=== PATIENT | male | born 1950 | race Caucasian/White ===

== ENCOUNTER 2019-03-20 06:46 | Inpatient (IN) | payer MEDICARE, OTHER ==
[2019-03-18 10:13] LABS: BASOPHILS # (AUTO) 0.1 (0.0-0.1); BASOPHILS % 0.6 % (0.0-1.0); EOSINOPHILS # (AUTO) 0.1 (0.0-0.4); EOSINOPHILS % 0.8 % (0.0-6.0); HEMATOCRIT 42.6 % (38.2-49.6); HEMOGLOBIN 15.1 g/dL (14.0-18.0); LYMPHOCYTES # (AUTO) 1.4 (1.0-3.2); LYMPHOCYTES % 16.1 % (18.0-39.1); MEAN CORPUSCULAR HEMOGLOBIN 31.3 pg (28-32); MEAN CORPUSCULAR HGB CONC 35.4 g/dL (31-35); MEAN CORPUSCULAR VOLUME 88.2 fL (81-99); MONOCYTES # (AUTO) 0.8 (0.2-0.8); MONOCYTES % 8.7 % (4.4-11.3); NEUTROPHILS # (AUTO) 6.3 (2.1-6.9); NEUTROPHILS % 73.2 % (38.7-80.0); PLATELET COUNT 236 x10e3/uL (140-360); RED BLOOD COUNT 4.83 x10e6/uL (4.3-5.7)
[2019-03-18 10:26] LABS: BLOOD UREA NITROGEN 16 mg/dL (7-26); BUN/CREATININE RATIO 21 (6-25); CALCIUM 9.9 mg/dL (8.4-10.2); CARBON DIOXIDE 24 mmol/L (22-29); CHLORIDE 103 mmol/L (98-107); CREATININE, SERUM 0.78 mg/dL (0.72-1.25); EST GLOMERULAR FILTRATION RATE > 60 ML/MIN (60-); GLUCOSE 95 mg/dL (74-118); SODIUM 139 mmol/L (136-145)
[2019-03-18 10:31] LABS: INR 0.98; PROTHROMBIN TIME 13.5 seconds (11.9-14.5)
--- NOTE | 2019-03-18 10:44 | Diagnostic Imaging Report ---
EXAMINATION: CHEST 2 VIEWS INDICATION: Pre-operative COMPARISON: None FINDINGS: LINES/TUBES:None LUNGS:The lungs are well-inflated. No focal consolidation or pulmonary edema. PLEURA:No pleural effusion or pneumothorax. MEDIASTINUM:The cardiomediastinal silhouette appears normal in size and shape. Atherosclerotic calcifications of the thoracic aorta. BONES/SOFT TISSUES:No acute osseous injury. Degenerative changes of the visualized spine. ABDOMEN:No free air under the diaphragm. IMPRESSION: No focal pneumonia or pulmonary edema. Signed by: Gemini Valles MD on 03/18/2019 10:41 AM
[2019-03-20] VITALS (7 sets, daily range): BP systolic 110–123; BP diastolic 58–67
[~2019-03-20] VITALS: Ht 168.9 cm; Wt 102.1 kg
[~2019-03-20 06:46] MED LIST: LIPITOR20 MG PO; MICARDIS HCT 81 EAC1 PO; PROBIOTIC & AC1 EACH PO; SPIRONOLACTONE25 MG PO; VITAMIN D400 UNIT PO; XARELTO20 MG PO
--- OUTSIDE RECORDS SUMMARY | 2019-03-20 06:51 | XMS REPORT | Continuity of Care Document ---
Author Author [employer] Organization [employer] Address Unknown Phone Unavailable Care Team Providers Care School Transportation Director Name Role Phone [employer] Information mymission2 Unavailable Unavailable Problems Problem Status Onset Date Classification Date Reported Comments Source M25.569 - PAIN IN UNSPECIFIED KNEE Active 01/03/2019 [employer] Medications No Data Provided for This Section Allergies, Adverse Reactions, Alerts No Known Medication Allergies Immunizations No Data Provided for This Section Results No Data Provided for This Section Pathology Reports No Data Provided for This Section Diagnostic Reports Report Value Date Source Knee 4+ views bilat DX Clinical Indication: - M25.569 Pain in unspecified knee; Comparison: None FINDINGS: 4 views of the bilateral knees are obtained. Right knee: There is moderate osteoarthrosis in the medial and patellofemoral compartments with joint space narrowing and marginal osteophyte formation. Mild osteoarthrosis is present in the lateral compartment with joint space narrowing. No evidence of acute osseous abnormality. No soft tissue abnormality is seen. No significant knee effusion. Left knee: A left total knee arthroplasty is present with changes of patellar resurfacing. Prosthesis appears in satisfactory alignment, without evidence of perihardware lucency or hardware complication. No evidence of acute osseous abnormality. No soft tissue abnormality is seen. If there is further concern, recommend follow-up radiographs or MRI for complete assessment. IMPRESSION: 1. No acute osseous abnormality. 2. Moderate osteoarthrosis in the medial and patellofemoral compartments of the right knee and mild osteoarthrosis in the lateral compartment of the right knee. 3. Left total knee arthroplasty. SL: [id number] 01/03/2019 [employer] Spine lumbar 2 or 3 views DX Clinical Indication: - M54.5 Low back pain; Comparison: None FINDINGS: AP, lateral, and coned lateral views of the lumbar spine show five non rib bearing lumbar vertebral segments. Lumbar spine alignment is maintained. No evidence of acute osseous abnormality. Degenerative disc disease is present in the lumbar spine with disc space narrowing at L1-L2, L2-L3, and L5-S1. Multilevel small anterior osteophytes are present in the lumbar spine. The paraspinal soft tissues are unremarkable. If there is further concern or neurological abnormalities on clinical exam, MRI or CT of the lumbar spine may be performed for complete assessment. IMPRESSION: Multilevel degenerative disc disease in the lumbar spine. SL: [id number] 01/03/2019 KENNETH Brady Consultation Notes No Data Provided for This Section Discharge Summaries No Data Provided for This Section History and Physicals No Data Provided for This Section Vital Signs No Data Provided for This Section Encounters Location Location Details Encounter Type Encounter Number Reason For Visit Attending Provider ADM Date DC Date Status Source [facility] Out[facility] [id number] Allan Tyler 01/03/2019 01/04/2019 KENNETH Brady Procedures No Data Provided for This Section Assessment and Plan No Data Provided for This Section Plan of Care No Data Provided for This Section Social History Social History Date Source No data available for this section 01/04/2019 KENNETH Brady Family History No Data Provided for This Section Advance Directives No Data Provided for This Section Functional Status No Data Provided for This Section
--- OUTSIDE RECORDS SUMMARY | 2019-03-20 06:51 | XMS REPORT ---
Author [facility] Address Unknown Phone Unavailable Care Team Providers Care Bioinformatics Research Technician Name Role Phone IRIS HENSON Unavailable Unavailable Payers Payer Name Policy Type Policy Number Effective Date Expiration Date Problems This patient has no known problems. Allergies, Adverse Reactions, Alerts This patient has no known allergies or adverse reactions. Medications This patient has no known medications. Results Test Description Test Time Test Comments Text Results Atomic Results Result Comments CHEST 2 VIEWS 2019-03-18 10:40:00 [place] [address] Patient Name: SATHYA MAGANA MR #: [id number] : 1950 Age/Sex: 68/M Req #: [id number] Adm Physician: Ordered by: IRIS HENSON MD Report #: [id number] Location: OR Room/Bed: Procedure: [id number] DX/CHEST 2 VIEWS Exam Date: 03/18/19 Exam Time: 1000 REPORT STATUS: Signed EXAMINATION: CHEST 2 VIEWS INDICATION: Pre-operative COMPARISON: None FINDINGS: LINES/TUBES:None LUNGS:The lungs are well-inflated. No focal consolidation or pulmonary edema. PLEURA:No pleural effusion or pneumothorax. MEDIASTINUM:The cardiomediastinal silhouette appears normal in size and shape. Atherosclerotic calcifications of the thoracic aorta. BONES/SOFT TISSUES:No acute osseous injury. Degenerative changes of the visualized spine. ABDOMEN:No free air under the diaphragm. IMPRESSION: No focal pneumonia or pulmonary edema. Signed by: Joe Valles MD on 03/18/2019 10:41 AM Dictated By: JOE VALLES MD 1041 Transcribed By: FAYE on 03/18/19 1041 COPY TO: IRIS HENSON MD
--- OUTSIDE RECORDS SUMMARY | 2019-03-20 06:51 | XMS REPORT | Summary of Care ---
Author Author [facility] Outpatient Imaging [facility] Outpatient Imaging [place] Address Unknown Phone Unavailable Encounter HQ Encntr_alias(FIN) [id number] Date(s): 01/03/19 - 01/03/19 [facility] Outpatient Imaging [place] [address] [address] [phone]- [phone] Discharge Disposition: Home or Self Care Attending Physician: Allan Tyelr MD Referring Physician: Allan Tyler MD Vital Signs No data available for this section Problem List No data available for this section Allergies, Adverse Reactions, Alerts No data available for this section Medications No data available for this section Results No data available for this section Immunizations No data available for this section Procedures No data available for this section Social History No data available for this section Assessment and Plan No data available for this section
[2019-03-20] MEDS ORDERED: PIPER-TAZ 3.375 GM 50 ML ONE (07:37)
[2019-03-20] MEDS ORDERED: GENTAMICIN 80MG/NS 100 ML 200 ML IV ONE (07:37)
[2019-03-20] MEDS ORDERED: TERAZOSIN HCL5 MG PO (07:54)
[2019-03-20] MEDS ORDERED: B&O 60MG R/S 60 MG SUPP PR ONE (09:13)
[2019-03-20] MEDS ORDERED: IOPAMIDOL 610MG/1ML 300 MG/ML VIAL IV ONE (09:13)
[2019-03-20] MEDS: D5.45%NS/KCL 20MEQ 1,000 ML IV SCH ×2 (11:34→21:16)
[2019-03-20] MEDS ORDERED: ONDANSETRON HCL INJ 2MG/ML 2ML 2 MG/ML VIAL IV PRN (11:45)
[2019-03-20] MEDS ORDERED: DIPHENHYDRAMINE HCL 25 MG CAP PO PRN (11:45)
[2019-03-20] MEDS ORDERED: B&O 60MG R/S 60 MG SUPP PR PRN (11:45)
--- OUTSIDE RECORDS SUMMARY | 2019-03-20 11:58 | XMS REPORT | Continuity of Care Document ---
Author Author [employer] Organization [employer] Address Unknown Phone Unavailable Care Team Providers Care Library Cataloging Technician Name Role Phone [employer] Information [employer] Unavailable Unavailable Problems Problem Status Onset Date Classification Date Reported Comments Source M25.569 - PAIN IN UNSPECIFIED KNEE Active 01/03/2019 [employer] Medications No Data Provided for This Section [...] knee. 3. Left total knee arthroplasty. SL: [id number] 01/03/2019 [employer] Spine lumbar 2 or 3 views DX [...] disc disease in the lumbar spine. SL: [id number] 01/03/2019 KENNETH Brady Consultation Notes No Data Provided for This Section Discharge Summaries No Data Provided for This Section History and Physicals No Data Provided for This Section Vital Signs No Data Provided for This Section Encounters Location Location Details Encounter Type Encounter Number Reason For Visit Attending Provider ADM Date DC Date Status Source [facility] Outpatient Imaging [facility] [id number] Allan Tyler 01/03/2019 01/04/2019 KENNETH Brady Procedures [...]
--- NOTE | 2019-03-20 12:50 | NUR ---
Received patient via stretcher from PACU. AAOX4 to time,person,place, situation. Respirations even and unlabored. 24 F catheter on continuous bladder irrigation. Bloody tinged urine noted. Oriented patient to room. Instructed to use call light for assistance. Voiced understanding. Will continue to monitor.
[2019-03-20] MEDS: PHENAZOPYRIDINE HCL 100 MG TAB PO SCH ×2 (13:11→17:05)
[2019-03-20] MEDS: ACETAMINOPHEN/CODEINE 300MG - 30MG TAB PO PRN ×2 (13:12→17:39)
[2019-03-20] MEDS ORDERED: FENTANYL CITRATE/PF 100MCG/2 ML INJ ONE (14:04)
[2019-03-20] MEDS ORDERED: MORPHINE SULFATE INJ 10 MG/ML ONE (14:04)
[2019-03-20] MEDS ORDERED: MIDAZOLAM HCL 2 MG/2 ML VIAL ONE (14:04)
[2019-03-20 15:44] LABS: BASOPHILS % 0.2 % (0.0-1.0); HEMATOCRIT 44.4 % (38.2-49.6); HEMOGLOBIN 15.7 g/dL (14.0-18.0); LYMPHOCYTES # (AUTO) 0.5 (1.0-3.2); LYMPHOCYTES % 4.1 % (18.0-39.1); MEAN CORPUSCULAR HEMOGLOBIN 31.4 pg (28-32); MEAN CORPUSCULAR HGB CONC 35.4 g/dL (31-35); MEAN CORPUSCULAR VOLUME 88.8 fL (81-99); MONOCYTES # (AUTO) 0.3 (0.2-0.8); MONOCYTES % 2.4 % (4.4-11.3); NEUTROPHILS # (AUTO) 12.4 (2.1-6.9); NEUTROPHILS % 92.8 % (38.7-80.0); PLATELET COUNT 187 x10e3/uL (140-360)
[2019-03-20 15:58] LABS: ANION GAP 15.8 mmol/L (8-16); BLOOD UREA NITROGEN 12 mg/dL (7-26); BUN/CREATININE RATIO 16 (6-25); CALCIUM 9.4 mg/dL (8.4-10.2); CARBON DIOXIDE 24 mmol/L (22-29); CHLORIDE 102 mmol/L (98-107); CREATININE, SERUM 0.77 mg/dL (0.72-1.25); EST GLOMERULAR FILTRATION RATE > 60 ML/MIN (60-); GLUCOSE 129 mg/dL (74-118); POTASSIUM 3.8 mmol/L (3.5-5.1); SODIUM 138 mmol/L (136-145)
--- NOTE | 2019-03-20 16:00 | NUR ---
xarelto, spironolactone and mycardis held per
[2019-03-20] MEDS: PIPER-TAZ 3.375 GM 50 ML IV SCH (17:05)
[2019-03-20] MEDS: DOCUSATE SODIUM 100 MG CAP PO SCH (17:05)
[2019-03-20] MEDS ORDERED: ACETAMINOPHEN 1000 MG/100 ML IV ONE (17:30)
[2019-03-20] MEDS ORDERED: FUROSEMIDE INJ 10 MG/ML 4 ML VIAL ONE (17:30)
[2019-03-20] MEDS ORDERED: LIDOCAINE HCL 2% LOCAL INJ 5 ML SDV VIAL INJ ONE (17:30)
[2019-03-20] MEDS ORDERED: ONDANSETRON HCL INJ 2MG/ML 2ML 2 MG/ML VIAL ONE (17:30)
[2019-03-20] MEDS ORDERED: DEXAMETHASONE SOD PHOS INJ 4 MG/ML VIAL ONE (17:30)
[2019-03-20] MEDS ORDERED: PROPOFOL IV EMULSION 10 MG/ML 20 ML VIAL ONE (17:30)
[2019-03-20] MEDS ORDERED: SEVOFLURANE INHAL SOLN 250 ML PEN BTL ONE (17:30)
[2019-03-20] MEDS ORDERED: GLYCOPYRROLATE INJ 1MG/ 5 ML SYR ONE (17:30)
--- NOTE | 2019-03-20 19:21 | NUR ---
Report given to oncoming nurse of patient's status. Resting in bed, side rails upx2, call light within reach, family at bedside. No s/s of acute distress noted.
--- NOTE | 2019-03-20 20:02 | NUR ---
RECEIVED REPORT. PATIENT AAOX3, DENIES PAIN. DENIES NEEDS. CALL LIGHT WITHIN REACH.
[2019-03-20] MEDS ORDERED: ATORVASTATIN 20 MG TAB PO SCH (21:00)
[2019-03-20] MEDS: TERAZOSIN HCL 5 MG CAP PO SCH (21:07)
[2019-03-20] MEDS: ATORVASTATIN 40 MG TAB PO SCH (21:16)
[2019-03-21] VITALS (7 sets, daily range): BP systolic 107–125; BP diastolic 59–73
[2019-03-21] MEDS: PIPER-TAZ 3.375 GM 50 ML IV SCH ×4 (00:27→23:59)
[2019-03-21 05:43] LABS: BASOPHILS % 0.2 % (0.0-1.0); EOSINOPHILS % 0.2 % (0.0-6.0); HEMATOCRIT 38.7 % (38.2-49.6); HEMOGLOBIN 13.8 g/dL (14.0-18.0); LYMPHOCYTES # (AUTO) 1.3 (1.0-3.2); LYMPHOCYTES % 9.8 % (18.0-39.1); MEAN CORPUSCULAR HEMOGLOBIN 31.9 pg (28-32); MEAN CORPUSCULAR HGB CONC 35.7 g/dL (31-35); MEAN CORPUSCULAR VOLUME 89.6 fL (81-99); MONOCYTES # (AUTO) 1.3 (0.2-0.8); MONOCYTES % 10.3 % (4.4-11.3); NEUTROPHILS # (AUTO) 10.3 (2.1-6.9); NEUTROPHILS % 78.9 % (38.7-80.0); PLATELET COUNT 183 x10e3/uL (140-360); RED BLOOD COUNT 4.32 x10e6/uL (4.3-5.7)
[2019-03-21] MEDS: D5.45%NS/KCL 20MEQ 1,000 ML IV SCH (05:54)
[2019-03-21 06:00] LABS: ANION GAP 12.4 mmol/L (8-16); BLOOD UREA NITROGEN 11 mg/dL (7-26); BUN/CREATININE RATIO 13 (6-25); CALCIUM 8.7 mg/dL (8.4-10.2); CARBON DIOXIDE 24 mmol/L (22-29); CHLORIDE 103 mmol/L (98-107); CREATININE, SERUM 0.87 mg/dL (0.72-1.25); EST GLOMERULAR FILTRATION RATE > 60 ML/MIN (60-); GLUCOSE 140 mg/dL (74-118); POTASSIUM 4.4 mmol/L (3.5-5.1); SODIUM 135 mmol/L (136-145)
--- NOTE | 2019-03-21 07:17 | NUR ---
BEDSIDE REPORT GIVEN TO ONCOMING NURSE. PATIENT AAOX3, STABLE CONDITION, RESTING IN BED. BED LOCKED AND IN LOWEST POSITION, CALL LIGHT WITHIN REACH.
[2019-03-21] MEDS: ACETAMINOPHEN/CODEINE 300MG - 30MG TAB PO PRN (07:54)
[2019-03-21] MEDS: LACTOBACILLUS ACIDOPHILUS CAPSULE PO SCH (07:55)
[2019-03-21] MEDS: CHOLECALCIFEROL 400 UNIT TAB PO SCH (07:55)
[2019-03-21] MEDS: DOCUSATE SODIUM 100 MG CAP PO SCH ×2 (07:55→16:39)
[2019-03-21] MEDS: PHENAZOPYRIDINE HCL 100 MG TAB PO SCH ×3 (07:55→16:39)
[2019-03-21] MEDS ORDERED: CHOLECALCIFEROL PO SCH (09:00)
[2019-03-21] MEDS ORDERED: TERAZOSIN HCL 5 MG CAP PO SCH (09:00)
[2019-03-21] MEDS ORDERED: SODIUM CHLORIDE 0.9% 250ML 250 ML ONE (16:06)
--- NOTE | 2019-03-21 19:00 | NUR ---
RECEIVED PATIENT IN BEDSIDE REPORT. PATIENT AMBULATING BACK TO BED FROM BATHROOM. STEADY GAIT NOTED. NO PAIN REPORTED. CONTINUOUS BLADDER IRRIGATION RUNNING, URINE DRAINING AND ORANGE. LYDIA HOSE AND SCDS ON. NO S&S OF DISTRESS NOTED. BED LOCKED IN LOWEST POSITION, SIDE RAILS UPX2, CALL LIGHT IN REACH.
--- NOTE | 2019-03-21 19:00 | NUR ---
Report given to oncoming nurse of patient's status. No s/s of acute distress noted.
[2019-03-21] MEDS: ATORVASTATIN 40 MG TAB PO SCH (20:51)
[2019-03-21] MEDS: TERAZOSIN HCL 5 MG CAP PO SCH (20:51)
[2019-03-22] VITALS: BP 124/62
--- NOTE | 2019-03-22 03:00 | NUR ---
CBI BAGS CHANGED AT THIS TIME. URINE DRAINING CLEAR, YELLOW AT THIS TIME. NO PAIN OR S&S OF DISTRESS NOTED. WILL CONTINUE TO MONITOR.
[2019-03-22 04:00] VITALS: BP 143/80
[2019-03-22 05:55] LABS: BASOPHILS # (AUTO) 0.1 (0.0-0.1); BASOPHILS % 0.5 % (0.0-1.0); EOSINOPHILS # (AUTO) 0.2 (0.0-0.4); EOSINOPHILS % 2.1 % (0.0-6.0); HEMATOCRIT 38.3 % (38.2-49.6); HEMOGLOBIN 13.1 g/dL (14.0-18.0); LYMPHOCYTES # (AUTO) 2.3 (1.0-3.2); LYMPHOCYTES % 19.5 % (18.0-39.1); MEAN CORPUSCULAR HEMOGLOBIN 31.2 pg (28-32); MEAN CORPUSCULAR HGB CONC 34.2 g/dL (31-35); MEAN CORPUSCULAR VOLUME 91.2 fL (81-99); MONOCYTES # (AUTO) 1.1 (0.2-0.8); MONOCYTES % 9.1 % (4.4-11.3); NEUTROPHILS % 68.3 % (38.7-80.0); PLATELET COUNT 174 x10e3/uL (140-360); RED CELL DISTRIBUTION WIDTH 13.2 % (11.7-14.4)
[2019-03-22 06:17] LABS: ANION GAP 11.7 mmol/L (8-16); BLOOD UREA NITROGEN 14 mg/dL (7-26); BUN/CREATININE RATIO 18 (6-25); CALCIUM 8.8 mg/dL (8.4-10.2); CARBON DIOXIDE 24 mmol/L (22-29); CHLORIDE 108 mmol/L (98-107); CREATININE, SERUM 0.76 mg/dL (0.72-1.25); EST GLOMERULAR FILTRATION RATE > 60 ML/MIN (60-); GLUCOSE 93 mg/dL (74-118); POTASSIUM 3.7 mmol/L (3.5-5.1); SODIUM 140 mmol/L (136-145)
[2019-03-22 08:06] VITALS: BP 129/70
[2019-03-22 08:29] VITALS: BP 129/70
[2019-03-22] MEDS: DOCUSATE SODIUM 100 MG CAP PO SCH (08:29)
[2019-03-22] MEDS: PIPER-TAZ 3.375 GM 50 ML IV SCH (08:29)
[2019-03-22] MEDS: LACTOBACILLUS ACIDOPHILUS CAPSULE PO SCH (08:29)
[2019-03-22] MEDS: CHOLECALCIFEROL 400 UNIT TAB PO SCH (08:29)
[2019-03-22] MEDS: PHENAZOPYRIDINE HCL 100 MG TAB PO SCH (08:29)
[2019-03-22] MEDS ORDERED: ONDANSETRON HCL 4 MG ORAL DISINTEGRATING TAB PO PRN (08:45)
--- NOTE | 2019-03-22 10:20 | NUR ---
EDUCATED ABOUT IMM, SIGNED, FILED IN CHART, WITH COPY LEFT WITH FAMILY AT BEDSIDE.
--- NOTE | 2019-03-22 11:04 | NUR ---
CBI AND ROBINA MCLEAN PT DOING SERIAL URINES AT THIS TIME
[2019-03-22] MEDS: ACETAMINOPHEN/CODEINE 300MG - 30MG TAB PO PRN (11:10)
[2019-03-22 12:05] VITALS: BP 139/77
--- NOTE | 2019-03-22 13:24 | NUR ---
PT HAD 5 CLEAR SERIAL URINES MD HENSON AWARE AND HAS CLEARED PT DC
[2019-03-22] MEDS ORDERED: CIPRO500 MG PO (13:28)
[2019-03-22] MEDS ORDERED: ZOFRAN4 MG PO (13:28)
[2019-03-22] MEDS ORDERED: TYLENOL # 31 EA PO (13:29)
--- NOTE | 2019-03-22 13:58 | NUR ---
DISCHARGE INSTRUCTIONS AND PRESCRIPTIONS GIVEN. PT VERBALIZED UNDERSTANDING IV DC PRESSURE DRESSING APPLIED AND TAPED PT IS READY FOR DC AT THIS TIME
--- NOTE | 2019-03-22 14:04 | NUR ---
PT OFF UNIT TO HOME
--- NOTE | 2019-05-13 05:50 | Operative Report ---
DATE OF PROCEDURE: 03/20/2019 SURGEON: Donn Verdugo MD PREOPERATIVE DIAGNOSES: 1. Obstructive benign prostatic hypertrophy. 2. Elevated PSA. 3. Urinary tract infection. 4. Hematuria. 5. History of urolithiasis. POSTOPERATIVE DIAGNOSES: 1. Obstructive benign prostatic hypertrophy. 2. Elevated PSA. 3. Urinary tract infection. 4. Hematuria. 5. History of urolithiasis. 6. Distal urethral stricture disease. OPERATIONS PERFORMED: 1. Transrectal needle biopsy of the prostate (separate procedure performed for the elevated PSA). 2. Ultrasonographic guidance for needle biopsies interpretation. No radiologist present. 3. Interpretation of transrectal sonography. No radiologist present. 4. Cystourethroscopy with calibration and dilation of urethral stricture (separate procedure performed for the diagnosis of stricture). 5. Cystourethroscopy with bilateral ureteral catheterization and retrograde ureteropyelography (separate procedure performed for the urinary tract infections, hematuria, and stone history). 6. Cystourethroscopy with transurethral resection of the prostate utilizing the plasma button electrode. ANESTHESIA: General. COMPLICATIONS: None. CLINICAL SUMMARY: Joo Bai is a 68-year-old man with elevated PSA. He has a family history of prostate cancer. He has obstructive BPH and desires management. He is aware of the risks of bleeding, infection, injury to adjacent structures, need for additional procedures, and elected to proceed. OPERATIVE PROCEDURE IN DETAIL: Informed consent was verified. Joo Bai was properly identified, taken to the operating room, placed on the cystoscopy table in supine position. Anesthesia was uneventfully begun. The patient was then carefully and gently repositioned in dorsal lithotomy position with all pressure points well padded. Transrectal ultrasonography was performed. Interpretation of ultrasonography. Real-time ultrasonography was performed. The patient's prostate size was approximately 72 mL. There was a nodule at the anterior portion of the prostate to the . No other suspicious lesions were identified. There were no other tumors. The prostate capsule was otherwise smooth and the seminal vesicles were unremarkable. Transrectal ultrasonography was utilized to perform needle biopsies of prostate. A total of six biopsies were taken and biopsies were taken at 6 different locations. Multiple biopsies were taken at each location. We labeled the biopsies the right versus left and base versus mid versus apex. After obtaining the biopsies, the patient's genitalia were prepared and draped in usual sterile fashion. The cystoscope sheath with a visual obturator in place could not be easily placed, as the fossa navicularis, although it was able to be placed into the urethral meatus. We calibrated this approximately 18-Tuvaluan in size and progressively dilated to 30-Tuvaluan in size using female sounds. We were then easily able to place the cystoscope sheath with the visual obturator was placed in the patient's urethra. The urethra otherwise was remarkable for wide caliber, not clinically significant bulbar urethral stricture. The prostate bed is good with trilobar prostatic hypertrophy with visual obstruction. Panendoscopy of the bladder revealed heavy trabeculations. There were grade III nature, but no suspicious mucosal lesions were identified. An 8-Tuvaluan catheter was used to cannulate each ureter and retrograde ureteral pyelograms were performed. Interpretation of retrograde ureteropyelography contrast was instilled in retrograde fashion bilaterally. There were no tumors, no stones, no diverticula. Bilateral J hooking was noted. There were no obvious mucosal lesions. The cystoscope was withdrawn. The resectoscope was atraumatically placed with obturator in place. Vaporization of the prostate was then carried out from the bladder neck to maneuver past the verumontanum. Resection carried down the surgical capsule. We then utilized electrocautery to achieve and confirm hemostasis. During this resection, there is a median lobe. Care was taken to avoid injuring the ureteral orifices. A wide open prostatic channel was achieved with excellent hemostasis. The cystoscope was withdrawn. Johnson catheter was placed. It was irrigated to and fro to ensure it works properly. A belladonna and opium suppository were placed revealing a 50 g prostate that was smooth, nonfluctuant without any nodules. The patient was then uneventfully reversed from anesthesia and taken to recovery room in stable condition. There were no complications to the procedure. The patient tolerated the procedure well. Estimated blood loss was minimal. We will proceed with routine postoperative care and of course ongoing urological followup. Donn Verdugo MD [place]/MODL /[id number]
== END 2019-03-22 14:02 | disposition home or self-care (01) | DRG 713 ==
LOC: OR 06:46 → PACU V 11:37 → MED/SURG 12:51
PROVIDERS: ADMIT Internal Medicine; ATTEND Urology
PROC: 0T7D8ZZ Dilation of Urethra, Via Natural or Artificial Opening Endoscopic (ICD-10-PCS; 2019-03-20)
PROC: BT141ZZ Fluoroscopy of Kidneys, Ureters and Bladder using Low Osmolar Contrast (ICD-10-PCS; 2019-03-20)
PROC: 0VB08ZZ Excision of Prostate, Via Natural or Artificial Opening Endoscopic (ICD-10-PCS; principal; 2019-03-20 09:00)
PROC: 0VB08ZX Excision of Prostate, Via Natural or Artificial Opening Endoscopic, Diagnostic (ICD-10-PCS; 2019-03-20 09:00)
PROC: 0T788ZZ Dilation of Bilateral Ureters, Via Natural or Artificial Opening Endoscopic (ICD-10-PCS; 2019-03-20 09:00)
DX: N40.1 Benign prostatic hyperplasia with lower urinary tract symptoms (principal); N39.0 Urinary tract infection, site not specified; N13.8 Other obstructive and reflux uropathy; R33.8 Other retention of urine; N35.819 Other urethral stricture, male, unspecified site; Z87.442 Personal history of urinary calculi
CPT/HCPCS: 36415; 71046; 74420; 76872; 76998; 80048; 83735; 85025; 85610; 85730; 88305; C1758; J1100; J1580; J1940; J2001; J2250; J2270; J2405; J2543; J3010; J7050

== ENCOUNTER 2019-03-23 22:33 | Emergency (ER) | payer MEDICARE, OTHER ==
[~2019-03-23] VITALS: Ht 168.9 cm; Wt 102.1 kg
[~2019-03-23 22:33] MED LIST changes: +CIPRO500 MG PO; +TERAZOSIN HCL5 MG PO; +TYLENOL # 31 EA PO; +ZOFRAN4 MG PO
--- OUTSIDE RECORDS SUMMARY | 2019-03-23 22:36 | XMS REPORT | Continuity of Care Document ---
Author Author [employer] Organization [employer] Address Unknown Phone Unavailable Care Team Providers Care Golf Cart Maker Name Role Phone [employer] Information [email or web address] Unavailable Unavailable Problems Problem Status Onset Date Classification Date Reported Comments Source M25.569 - PAIN IN UNSPECIFIED KNEE Active 01/03/2019 [employer] Medications No Data Provided for This Section [...] knee. 3. Left total knee arthroplasty. SL: [id number] 01/03/2019 [employer] Spine lumbar 2 or 3 views DX [...] disc disease in the lumbar spine. SL: [id number] 01/03/2019 KENNETH Brady Consultation Notes No Data Provided for This Section Discharge Summaries No Data Provided for This Section History and Physicals No Data Provided for This Section Vital Signs No Data Provided for This Section Encounters Location Location Details Encounter Type Encounter Number Reason For Visit Attending Provider ADM Date DC Date Status Source [facility] Outpatient Imaging [facility] [id number] Allan Tyler 01/03/2019 01/04/2019 KENNETH Brady Procedures [...]
== END 2019-03-23 22:48 | disposition left against medical advice (07) ==
LOC: ER 22:33
DX: M79.89 Other specified soft tissue disorders (principal)

== ENCOUNTER 2019-04-01 21:35 | Emergency (ER) | payer MEDICARE, OTHER ==
[~2019-04-01] VITALS: Ht 168.9 cm; Wt 102.1 kg
--- OUTSIDE RECORDS SUMMARY | 2019-04-01 21:38 | XMS REPORT | Continuity of Care Document ---
Author Author [employer] Organization [employer] Address Unknown Phone Unavailable Care Team Providers Care Window Shade Cutter And Mounter Name Role Phone [employer] Information [email or web address] Unavailable Unavailable Problems Problem Status Onset Date Classification Date Reported Comments Source M25.569 - PAIN IN UNSPECIFIED KNEE Active 01/03/2019 [employer] Medications No Data Provided for This Section [...] knee. 3. Left total knee arthroplasty. SL: [id number] 01/03/2019 [employer] Spine lumbar 2 or 3 views DX [...] disc disease in the lumbar spine. SL: [id number] 01/03/2019 KENNETH Brady Consultation Notes No Data Provided for This Section Discharge Summaries No Data Provided for This Section History and Physicals No Data Provided for This Section Vital Signs No Data Provided for This Section Encounters Location Location Details Encounter Type Encounter Number Reason For Visit Attending Provider ADM Date DC Date Status Source [facility] Outpatient Imaging [facility] [id number] Allan Tyler 01/03/2019 01/04/2019 KENNETH Brady Procedures [...]
[2019-04-01 23:06] LABS: BILIRUBIN,URINE NEGATIVE (NEGATIVE); CLARITY,URINE CLOUDY (CLEAR); COLOR,URINE YELLOW (YELLOW); KETONES,URINE NEGATIVE (NEGATIVE); LEUKOCYTE ESTERASE ,URINE SMALL (NEGATIVE); NITRITE,URINE NEGATIVE (NEGATIVE); PROTEIN,URINE DIPSTICK 2+ (NEGATIVE); URINE UROBILINOGEN 0.2 mg/dL (0.2 - 1)
[2019-04-01 23:25] LABS: BACTERIA,URINE MODERATE /HPF; EPITHELIAL CELLS,URINE FEW /LPF; RBC,URINE >50 /HPF (0-5); WBC,URINE (MAN) >50 /HPF (0-5)
[2019-04-02 01:25] VITALS: BP 109/78
== END 2019-04-02 01:29 | disposition home or self-care (01) ==
LOC: ER 21:35
DX: M79.661 Pain in right lower leg (principal); N30.91 Cystitis, unspecified with hematuria; Z86.711 Personal history of pulmonary embolism
CPT/HCPCS: 81001; 87086; 93306; 93971; 99283

== ENCOUNTER 2019-04-16 15:09 | Emergency (ER) | payer MEDICARE, OTHER ==
[~2019-04-16] VITALS: Ht 168.9 cm; Wt 102.1 kg
--- OUTSIDE RECORDS SUMMARY | 2019-04-16 15:12 | XMS REPORT | Continuity of Care Document ---
Author Author [employer] Organization [employer] Address Unknown Phone Unavailable Care Team Providers Care Senior Java Web Application Developer Name Role Phone [employer] Information [facility] [address] Unavailable Unavailable Problems Problem Status Onset Date Classification Date Reported Comments Source M25.569 - PAIN IN UNSPECIFIED KNEE Active 01/03/2019 [employer] Medications No Data Provided for This Section [...] knee. 3. Left total knee arthroplasty. SL: [id number] 01/03/2019 [employer] Spine lumbar 2 or 3 views DX [...] disc disease in the lumbar spine. SL: [id number] 01/03/2019 KENNETH Brady Consultation Notes No Data Provided for This Section Discharge Summaries No Data Provided for This Section History and Physicals No Data Provided for This Section Vital Signs No Data Provided for This Section Encounters Location Location Details Encounter Type Encounter Number Reason For Visit Attending Provider ADM Date DC Date Status Source [facility] Outpatient Imaging [facility] [id number] Allan Tyler 01/03/2019 01/04/2019 KENNETH Brady Procedures [...]
[2019-04-16 16:07] LABS: BILIRUBIN,URINE NEGATIVE (NEGATIVE); CLARITY,URINE SL CLOUDY (CLEAR); KETONES,URINE NEGATIVE (NEGATIVE); LEUKOCYTE ESTERASE ,URINE SMALL (NEGATIVE); NITRITE,URINE NEGATIVE (NEGATIVE); PROTEIN,URINE DIPSTICK 2+ (NEGATIVE); URINE UROBILINOGEN 0.2 mg/dL (0.2 - 1)
[2019-04-16 16:08] LABS: COLOR,URINE AMBER (YELLOW)
[2019-04-16 16:20] LABS: RBC,URINE 21-50 /HPF (0-5)
[2019-04-16 17:15] LABS: BASOPHILS # (AUTO) 0.1 (0.0-0.1); BASOPHILS % 0.6 % (0.0-1.0); EOSINOPHILS # (AUTO) 0.3 (0.0-0.4); EOSINOPHILS % 2.8 % (0.0-6.0); HEMATOCRIT 41.5 % (38.2-49.6); HEMOGLOBIN 14.5 g/dL (14.0-18.0); LYMPHOCYTES % 20.9 % (18.0-39.1); MEAN CORPUSCULAR HEMOGLOBIN 30.9 pg (28-32); MEAN CORPUSCULAR HGB CONC 34.9 g/dL (31-35); MEAN CORPUSCULAR VOLUME 88.3 fL (81-99); MONOCYTES # (AUTO) 0.9 (0.2-0.8); MONOCYTES % 9.9 % (4.4-11.3); NEUTROPHILS # (AUTO) 6.2 (2.1-6.9); NEUTROPHILS % 65.5 % (38.7-80.0); PLATELET COUNT 239 x10e3/uL (140-360); RED CELL DISTRIBUTION WIDTH 12.5 % (11.7-14.4)
[2019-04-16] MEDS ORDERED: BACTRIM DS TAB1 EACH PO (17:28)
== END 2019-04-16 17:41 | disposition home or self-care (01) ==
LOC: ER 15:09
DX: N30.01 Acute cystitis with hematuria (principal); Z98.890 Other specified postprocedural states; F17.210 Nicotine dependence, cigarettes, uncomplicated
CPT/HCPCS: 36415; 81001; 85025; 87086; 99284

== ENCOUNTER 2019-07-21 08:27 | Inpatient (IN) | payer MEDICARE, OTHER ==
[~2019-07-21] VITALS: Ht 170.2 cm; Wt 105.2 kg
[~2019-07-21 08:27] MED LIST changes: +BACTRIM DS TAB1 EACH PO
[2019-07-21] MEDS ORDERED: SODIUM CHLORIDE 0.9% 1000ML 1,000 ML IV STA (08:43)
[2019-07-21 08:54] LABS: BASOPHILS # (AUTO) 0.1 (0.0-0.1); BASOPHILS % 0.4 % (0.0-1.0); EOSINOPHILS # (AUTO) 0.1 (0.0-0.4); HEMATOCRIT 42.5 % (38.2-49.6); HEMOGLOBIN 14.8 g/dL (14.0-18.0); LYMPHOCYTES # (AUTO) 1.5 (1.0-3.2); LYMPHOCYTES % 10.8 % (18.0-39.1); MEAN CORPUSCULAR HEMOGLOBIN 30.3 pg (28-32); MEAN CORPUSCULAR HGB CONC 34.8 g/dL (31-35); MEAN CORPUSCULAR VOLUME 87.1 fL (81-99); MONOCYTES # (AUTO) 1.4 (0.2-0.8); MONOCYTES % 10.5 % (4.4-11.3); NEUTROPHILS # (AUTO) 10.5 (2.1-6.9); NEUTROPHILS % 76.7 % (38.7-80.0); PLATELET COUNT 267 x10e3/uL (140-360); RED BLOOD COUNT 4.88 x10e6/uL (4.3-5.7); RED CELL DISTRIBUTION WIDTH 12.4 % (11.7-14.4)
[2019-07-21 08:59] LABS: INR 0.94; PROTHROMBIN TIME 13.1 seconds (11.9-14.5)
[2019-07-21 09:00] LABS: PARTIAL THROMBOPLASTIN TIME 32.4 seconds (23.8-35.5)
--- NOTE | 2019-07-21 09:05 | NUR ---
PATIENT DECLINED PAIN MEDICATION AT THIS TIME
[2019-07-21 09:10] LABS: ALANINE AMINOTRANSFERASE 21 IU/L (0-55); ALBUMIN 3.9 g/dL (3.5-5.0); ALBUMIN/GLOBULIN RATIO 1.1 (0.8-2.0); ALKALINE PHOSPHATASE 68 IU/L (40-150); ANION GAP 14.9 mmol/L (8-16); BLOOD UREA NITROGEN 12 mg/dL (7-26); BUN/CREATININE RATIO 16 (6-25); CALCIUM 9.8 mg/dL (8.4-10.2); CARBON DIOXIDE 24 mmol/L (22-29); CHLORIDE 102 mmol/L (98-107); CREATINE KINASE 95 IU/L (30-200); CREATININE, SERUM 0.74 mg/dL (0.72-1.25); EST GLOMERULAR FILTRATION RATE > 60 ML/MIN (60-); GLUCOSE 110 mg/dL (74-118); POTASSIUM 3.9 mmol/L (3.5-5.1); SODIUM 137 mmol/L (136-145)
--- NOTE | 2019-07-21 09:26 | Diagnostic Imaging Report ---
EXAMINATION: CHEST SINGLE (PORTABLE) COMPARISON: Chest x-ray 03/18/2019 INDICATION: ^CP, SOB, COUGH ^[id number] ^0900 DISCUSSION: Frontal view of the chest obtained at 0903 hours. HEART AND MEDIASTINUM: The heart is mildly enlarged, stable LINES: None. LUNGS: Right basilar airspace opacity. Left lung is clear. Pulmonary vascular markings are normal PLEURA: No pleural effusion or pneumothorax. BONES AND SOFT TISSUES: No focal osseous lesion. The soft tissues are normal. IMPRESSION: Right basilar airspace opacity, either atelectasis or pneumonia. Signed by: Dr. Lio Hathaway MD on 07/21/2019 9:23 AM
[2019-07-21] MEDS ORDERED: ONDANSETRON HCL INJ 2MG/ML 2ML 2 MG/ML VIAL IV ONE (09:30)
[2019-07-21] MEDS ORDERED: MORPHINE SULFATE INJ 4 MG/ML INJ 1ML IV ONE (09:30)
[2019-07-21 10:11] LABS: CLARITY,URINE HAZY (CLEAR); COLOR,URINE YELLOW (YELLOW); LEUKOCYTE ESTERASE ,URINE NEGATIVE (NEGATIVE); NITRITE,URINE NEGATIVE (NEGATIVE); PROTEIN,URINE DIPSTICK NEGATIVE (NEGATIVE)
[2019-07-21 10:12] LABS: BACTERIA,URINE RARE /HPF; BILIRUBIN,URINE NEGATIVE (NEGATIVE); RBC,URINE 0-5 /HPF (0-5); URINE UROBILINOGEN 0.2 mg/dL (0.2 - 1); WBC,URINE (MAN) 0-5 /HPF (0-5)
[2019-07-21 10:13] LABS: EPITHELIAL CELLS,URINE RARE /LPF; KETONES,URINE TRACE (NEGATIVE); MUCUS,URINE FEW (RARE)
[2019-07-21] MEDS: CEFTRIAXONE SOD 1 GM/NS 50 ML 50 ML IV SCH (10:15)
--- NOTE | 2019-07-21 10:24 | Diagnostic Imaging Report ---
CT chest with enhancement CPT code: 22814 INDICATION: Chest pain, shortness of breath TECHNIQUE: 5 mm collimation axial images obtained from the thoracic inlet to the level of the diaphragm following uneventful administration of 80 cc of low osmolar, nonionic intravenous contrast. RADIATION DOSE: Total DLP: 619.48 mGy*cm Estimated effective dose: (DLP x 0.015 x size factor) mSv CTDIvol has been reviewed. It is below the limits set by the Radiation Protocol Committee (RPC). Dose reduction techniques used: Automated exposure control, adjustment of the mAs and/or kVp according to patient size, standardized low-dose protocol, and/or iterative reconstruction technique. Comparison: None. CHEST FINDINGS: Lymph nodes: No enlarged axillary, supraventricular, mediastinal, or hilar lymph nodes. There are calcified mediastinal and left hilar lymph nodes. Thyroid: Visualized portions are normal. Mediastinum: No pericardial effusion. The heart is normal in size. There is is mild to moderate burden of coronary artery calcification and trace calcifications in the aortic valve annulus. Mild calcifications of the aortic arch. The aorta and IVC are normal in diameter. No filling defects in the great vessels. The esophagus is normal. Lungs: Right Lung: Posterior costophrenic angle atelectasis. No soft tissue mass or infiltrate. Left Lung: Posterior costophrenic angle atelectasis. Calcified granuloma in the posterior costophrenic angle measures 10 mm. No soft tissue mass or infiltrate. Pleura:Trace posterior pleural effusions. No pneumothorax ABDOMEN: Visualized portions of the upper abdomen demonstrate calcified granulomata throughout the spleen. Low attenuating lesions in the liver measure up to 7 mm and are too small to characterize. There is fatty atrophy of the pancreas. Mild thickening of the adrenal glands without discrete mass. Bones: Mild degenerative changes of the spine. No focal osseous lesions. IMPRESSION: 1. Small bilateral pleural effusions. No pulmonary infiltrates. 2. Coronary artery disease and atherosclerosis. 3. Healed granulomatous inflammation. Signed by: Dr. Lio Hathaway MD on 07/21/2019 10:21 AM
[2019-07-21] MEDS: AZITHROMYCIN 500MG/NS 250 ML 250 ML IV SCH (10:50)
[2019-07-21] MEDS ORDERED: ONDANSETRON HCL INJ 2MG/ML 2ML 2 MG/ML VIAL IV PRN (11:00)
[2019-07-21] MEDS ORDERED: MORPHINE SULFATE 2 MG/ML SYR 1ML IV PRN (11:00)
[2019-07-21] MEDS: FAMOTIDINE 20 MG/2 ML VIAL IV SCH ×2 (12:00→22:56)
[2019-07-21 13:11] VITALS: BP 124/59
--- NOTE | 2019-07-21 13:11 | NUR ---
Pt received from ER at this time. Pt is aox3 and able to verbalize needs. Denies any pain at this time. Pt is ambulatory, skin is intact. Breaths are even and unlabored. IV to right forearm 20g saline locked at this time. school bus monitor in place and pt HR is SR.
[2019-07-21 13:32] VITALS: BP 124/59
[2019-07-21] MEDS ORDERED: ENOXAPARIN INJ 80 MG/0.8 ML SYR SC ONE (15:15)
[2019-07-21] MEDS: ACETAMINOPHEN 325 MG TAB PO PRN (15:39)
[2019-07-21 16:03] VITALS: BP 121/57
[2019-07-21] MEDS ORDERED: IOPAMIDOL 370 MG/ML 200 ML INFUS..BTL INJ ONE (16:16)
[2019-07-21] MEDS ORDERED: SODIUM CHLORIDE 0.9% 50ML 50 ML ONE (16:16)
[2019-07-21 17:05] LABS: CREATINE KINASE 80 IU/L (30-200)
[2019-07-21 20:00] VITALS: BP 123/58
--- NOTE | 2019-07-21 20:00 | NUR ---
INITIAL ASSESSMENT COMPLETE, TELE ON PT, WALKS WITH CANE, IV INTACT, EDEMA 1+ TO LOWER EXTREMITES BUT IF KEPT UP, RESOLVED, CALL LIGHT IN REACH, NO DISTRESS NOTED
[2019-07-21] MEDS: ATORVASTATIN 40 MG TAB PO SCH (20:57)
[2019-07-21] MEDS: RIVAROXABAN 20 MG TABLET PO SCH (20:57)
--- NOTE | 2019-07-21 22:10 | Consultation ---
DATE OF CONSULTATION: 07/21/2019 Cardiology Consultation CHIEF COMPLAINT: The patient is a 68-year-old with some pleuritic chest pain. HISTORY OF PRESENT ILLNESS: The patient is a 68-year-old with a recent transurethral prostatectomy. The patient had some hematuria after the prostatectomy and Xarelto was discontinued. The patient came to the emergency room with some pleuritic chest pain markedly worse with inspiration. The patient does have a history of previous pulmonary embolism and deep venous thrombosis. The patient has a history of factor five Leiden deficiency. The patient previous medical history significant for: 1. Previous pulmonary embolism in 2018. 2. Previous deep venous thrombosis in 2018. 3. History of hypertension. 4. History of sleep apnea. 5. Recent transurethral prostatectomy. SOCIAL HISTORY: The patient does not drink and does not smoke. FAMILY HISTORY: The patient's family history of coronary artery disease and diabetes. PHYSICAL EXAMINATION: GENERAL: The patient is a well-developed, well-nourished male, in no distress. VITAL SIGNS: Included temperature 97.8, pulse of 80, blood pressure of 124/60. HEAD, EARS, EYES, NOSE, AND THROAT: The patient's cranium was normocephalic and atraumatic. Extraocular muscles were intact. Sclerae were anicteric. Pupils were equal, round, and reactive to light. There was no pallor or cyanosis of the oral mucosa. NECK: Supple. No jugular venous distention. No carotid bruits. CHEST: Demonstrated rhonchi bilaterally. CARDIAC: Demonstrated a normal S1 and S2 with a short 2/6 systolic murmur. ABDOMINAL: Demonstrated good bowel sounds. No tenderness and no masses. EXTREMITIES: There was no clubbing, no cyanosis, and no edema. NEUROLOGIC: The patient was alert and oriented x3. Cranial nerves II through XII are intact. Motor strength was +5/+5 in all limbs. The patient's EKG demonstrated normal sinus rhythm with a normal record. A CT scan of the chest was done, which demonstrated no infiltrates and no effusions. IMPRESSION: The patient is presented with a pleuritic chest pain and the patient has a history of previous pulmonary embolism. RECOMMENDATIONS: As follows: 1. The patient will be given one dose of Lovenox 80 mg now. 2. The patient will be restarted on Xarelto at 15 mg p.o. q.12 hours. 3. An echocardiogram has been ordered for the patient is will be observed overnight on telemetry. MD ALEXIS Beaver/DAVIDL /[id number] cc: Carolina Plascencia MD
--- NOTE | 2019-07-21 22:30 | NUR ---
DR ALDRIDGE HERE TO SEE PT, NEW ORDERS RECEIVED,
[2019-07-22] VITALS (7 sets, daily range): BP systolic 115–128; BP diastolic 58–63
--- NOTE | 2019-07-22 05:07 | History and Physical ---
CHIEF COMPLAINT: Chest pain and shortness of breath. HISTORY OF PRESENT ILLNESS: This is a 68-year-old male, history of Factor V Leiden. 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 He reports that he had stopped Xarelto, in which he follows up with an oncologist with [facility] about two months ago. Of note, he recently had a TURP procedure performed by Dr. Verdugo several months ago, two or three months ago as where he states and at that time, he had hematuria after he started Xarelto and he was instructed to hold Xarelto and to continue three or four days after every time he would call Urology, but he continued to have hematuria, in which the patient got very frustrated instead, decided to stop taking his Xarelto about six weeks ago as where he reports. He was told by his oncologist to continue taking it, but he refused to take his medications. Of note, because he stopped taking his Xarelto, he was concerned that he had a pulmonary embolism, as he has history of DVTs in the past and came into the ED for further evaluation and management. The patient was given a full dose of Lovenox in the emergency room and initiated on his oral Xarelto twice daily by Cardiology. The patient was seen and evaluated at bedside on the medical floor. He is currently doing well with no complaints at this time. He reports his symptoms are all resolved now. REVIEW OF SYSTEMS: Pertinent positive: Chest pain and shortness of breath. Pertinent negative: Denies any palpitation, nausea, vomiting, diarrhea, dysuria, hematuria, frequency, urgency, lightheadedness, dizziness, abdominal pain, headaches, cough, congestion, fever, or any other complaints. The rest of 14-point review of systems are reviewed with the patient and are negative. ALLERGIES: NO KNOWN DRUG ALLERGIES. HOME MEDICATIONS: Tylenol No. 3, spironolactone, cholecalciferol, telmisartan with hydrochlorothiazide, Lipitor, and Xarelto. PAST MEDICAL HISTORY: He has Factor V Leiden deficiency, DVTs, PEs, hyperlipidemia, and hypertension. PAST SURGICAL HISTORY: Reports none. FAMILY HISTORY: Hypertension and diabetes. SOCIAL HISTORY: No drugs, no alcohol, does not smoke. Good social support. Recently moved from [place] about a year and a half ago. PHYSICAL EXAMINATION: VITAL SIGNS: Temperature is T-max 100.1, pulse 79, respiratory rate 20, blood pressure 122/58, and pulse ox is 96% on room air. GENERAL: Not in acute distress. Alert and oriented x3. Cooperative on examination. HEENT: Head is normocephalic and atraumatic. Eyes; pupils are equal, round, and reactive to light bilaterally. Extraocular movements intact bilaterally. NECK: Supple. Good range of motion. Throat, no evidence of erythema or exudates in the posterior pharynx. Has poor dentition. PULMONARY: Clear to auscultation bilaterally. No wheezing, rales, or rhonchi. No crackles appreciated. CARDIOVASCULAR: Positive S1, S2. No murmurs, rubs, or gallops appreciated. ABDOMEN: Soft, nondistended, and nontender to palpation. Bowel sounds present. MUSCULOSKELETAL: Strength is 5/5 throughout. No evidence of any muscle deficits on examination. No weakness appreciated. NEUROLOGIC: Cranial nerves II through XII grossly intact. No evidence of any neurological deficits on exam. SKIN: Intact. Warm to touch. Good cap refill. PSYCHIATRIC: Normal affect and mood. EXTREMITIES: No edema. Good range of motion throughout. LABORATORY FINDINGS: White count 13.7, hemoglobin 14.8, hematocrit 42.5, and platelets of 267. PT 13, INR 0.94, and PTT 32. Chemistry; sodium 137, potassium 3.9, chloride 102, bicarb 24, anion gap of 14, BUN 12, creatinine 0.74, glucose 110, calcium 9.8, magnesium is 2. Total bilirubin is 2, AST 17, ALT 21, and alkaline phosphatase 68. CK 95. Troponins were negative. BNP 17. Total protein 7.3 and albumin 3.9. Urinalysis was found to be negative. Serology flu was negative. Microbiology, blood and urine cultures were pending. IMAGING STUDIES: Chest CT shows small bilateral pleural effusion with no pulmonary infiltrates. Coronary artery disease and arthrosclerosis. Healed granulomatous inflammation. They comment on no filling defects in the great vessels, but they do not comment any evidence of any PEs, which we will have Radiology relook at this image and Pulmonary has been consulted as well. Chest x-ray, right bibasilar airspace opacity. Either atelectasis or pneumonia. IMPRESSION: 1. Chest pain, atypical in nature. 2. Probable community-acquired pneumonia. 3. Factor V Leiden mutation diagnosed. 4. Shortness of breath, now resolved. 5. Hyperlipidemia. 6. Hypertension. PLAN: At this time, cardiac enzymes have been negative. Continue with cardioprotective medications and Cardiology has been consulted. As for his underlying questionable pneumonia, he is on IV antibiotics. It sounds like he has more pleurisy more than anything based on his story, as he takes a deep breath and it hurts when he takes a deep breath. He is on IV antibiotics. I did consult with Pulmonary to come and evaluate and treat. As for his Factor V Leiden deficiency, he has been restarted back on his Xarelto. The CT scan was not conclusive in terms of a PE because I do not know if this was the right CT scan that was ordered appropriately or not. We will have to discuss that with Radiology. I did consult with Pulmonary to come and evaluate and treat. He did see Dr. Verdugo in the past due to his underlying hematuria, which we will go ahead and consult him as well. He is currently on room air and he has no shortness of breath on exam. As for his hypertension, we are going to resume same home medications for now and monitor very closely. Nutrition will be heart healthy diet. Encourage ambulation. He is on Xarelto for DVT prophylaxis. Consultants are going to be Pulmonary, Hematology, Urology, and Cardiology. MD FATEMEH Tong/ELISABETH /[id number]
[2019-07-22 07:01] LABS: BASOPHILS # (AUTO) 0.1 (0.0-0.1); BASOPHILS % 0.4 % (0.0-1.0); EOSINOPHILS # (AUTO) 0.2 (0.0-0.4); EOSINOPHILS % 1.5 % (0.0-6.0); HEMATOCRIT 37.5 % (38.2-49.6); HEMOGLOBIN 13.1 g/dL (14.0-18.0); LYMPHOCYTES # (AUTO) 1.6 (1.0-3.2); LYMPHOCYTES % 12.1 % (18.0-39.1); MEAN CORPUSCULAR HEMOGLOBIN 30.2 pg (28-32); MEAN CORPUSCULAR HGB CONC 34.9 g/dL (31-35); MEAN CORPUSCULAR VOLUME 86.4 fL (81-99); MONOCYTES # (AUTO) 1.6 (0.2-0.8); MONOCYTES % 12.4 % (4.4-11.3); NEUTROPHILS # (AUTO) 9.6 (2.1-6.9); PLATELET COUNT 255 x10e3/uL (140-360); RED BLOOD COUNT 4.34 x10e6/uL (4.3-5.7); RED CELL DISTRIBUTION WIDTH 12.3 % (11.7-14.4)
--- NOTE | 2019-07-22 07:25 | NUR ---
PATIENT SITTING AT BED SIDE WATCHING TV, NO DISTRESS NOTED. DENIED PAIN AT THIS TIME. TELEMETRY BOX IN PLACE. BED IN LOWER POSITION, CALL LIGHT AT REACH.
[2019-07-22 07:26] LABS: ALANINE AMINOTRANSFERASE 18 IU/L (0-55); ALBUMIN 3.4 g/dL (3.5-5.0); ALBUMIN/GLOBULIN RATIO 1.1 (0.8-2.0); ALKALINE PHOSPHATASE 54 IU/L (40-150); ANION GAP 12.6 mmol/L (8-16); BLOOD UREA NITROGEN 14 mg/dL (7-26); BUN/CREATININE RATIO 20 (6-25); CALCIUM 9.3 mg/dL (8.4-10.2); CARBON DIOXIDE 23 mmol/L (22-29); CHLORIDE 102 mmol/L (98-107); CHOL/HDL RATIO 4.7 (3.9-4.7); CHOLESTEROL 140 MD/DL (0-199); EST GLOMERULAR FILTRATION RATE > 60 ML/MIN (60-); GLUCOSE 118 mg/dL (74-118); HDL CHOLESTEROL 30 MG/DL (40-60); LDL CHOLESTEROL 101 MG/DL (60-130); POTASSIUM 3.6 mmol/L (3.5-5.1); SODIUM 134 mmol/L (136-145); TRIGLYCERIDES 46 MG/DL (0-149)
[2019-07-22 08:02] LABS: CREATINE KINASE MB 0.9 ng/mL (0-5.0)
[2019-07-22] MEDS ORDERED: SODIUM CHLORIDE 0.9% 250ML 250 ML ONE (09:23)
[2019-07-22] MEDS: CEFTRIAXONE SOD 1 GM/NS 50 ML 50 ML IV SCH (09:33)
[2019-07-22] MEDS: RIVAROXABAN 20 MG TABLET PO SCH ×2 (09:33→21:00)
[2019-07-22] MEDS: AZITHROMYCIN 500MG/NS 250 ML 250 ML IV SCH (11:00)
--- NOTE | 2019-07-22 11:25 | NUR ---
IV ANTIBIOTIC INFUSING ORDERED. OUT OF BED TO CHAIR, CALL LIGHT AT REACH.
[2019-07-22] MEDS: FAMOTIDINE 20 MG/2 ML VIAL IV SCH ×2 (11:30→23:16)
[2019-07-22] MEDS: ACETAMINOPHEN 325 MG TAB PO PRN ×2 (15:00→21:00)
--- NOTE | 2019-07-22 15:16 | NUR ---
ECHOCARDIOGRAM IN PROGRESS AT BED SIDE. CALL LIGHT AT REACH.
--- NOTE | 2019-07-22 16:46 | NUR ---
OBS REVIEW SENT TO R1 FOR LOC.
[2019-07-22] MEDS ORDERED: RIVAROXABAN 20 MG TABLET PO SCH (17:00)
--- NOTE | 2019-07-22 17:07 | Progress Note ---
DATE: 07/22/2019 SUBJECTIVE: The patient reports feeling much better today with no complaints. No overnight events. OBJECTIVE: VITAL SIGNS: Temperature is 99.2, T-max of 101.7 at midnight. He notes pulse 60, respiratory rate is 19, blood pressure is 118/58, and pulse ox 96% on room air. LABORATORY DATA: White count was 13.1, hemoglobin 13, hematocrit 37.5, platelets of 255. Coagulation; PT 13, INR 0.94, PTT 32. Chemistry; sodium 134, potassium 3.6, chloride 102, bicarb 23, anion gap of 12, BUN is 14, creatinine is 0.7, glucose is 118, calcium is 9.3, total bilirubin is 1.6. LFTs within normal range. Troponins were all negative. Albumin 3.4. LDL was 101. Urinalysis negative. MICROBIOLOGY: Blood cultures, no growth today. Urine cultures, no growth today. IMAGING STUDIES: Chest CT shows no pulmonary infiltrate. Chest x-ray, bibasilar airspace opacities, either atelectasis or pneumonia. PHYSICAL EXAMINATION: GENERAL: No acute distress, alert, oriented x3, cooperative on examination. HEENT: Head, normocephalic, atraumatic. Eyes; pupils are equal, round, and reactive to light bilaterally. Extraocular movements intact bilaterally. NECK: Supple. Good range of motion throughout. Throat; no evidence of erythema or exudates in the posterior pharynx. Has poor dentition. PULMONARY: Clear to auscultation bilaterally. No wheezing, rales, or rhonchi. No crackles appreciated. CARDIOVASCULAR: Positive S1, S2. No murmurs, rubs, or gallops. ABDOMEN: Soft, nontender, nondistended to palpation. Bowel sounds present. MUSCULOSKELETAL: Strength is 5/5 throughout. No evidence of any muscle deficits on examination. No weakness appreciated. NEUROLOGIC: Cranial nerves II through XII were grossly intact. No evidence of any neurological deficits on exam. SKIN: Intact. Warm to touch. Good cap refill. PSYCHIATRIC: Normal affect and mood. EXTREMITIES: No edema. Good range of motion throughout. IMPRESSION: 1. Chest pain, atypical in nature. 2. Probable community-acquired pneumonia. 3. Factor V Leiden mutation diagnosed. 4. Shortness of breath, now resolved. 5. Hyperlipidemia. 6. Hypertension. PLAN: At this time, cardiac enzymes are negative, likely atypical in nature. No further workup needed by Cardiology. Continue with cardioprotective medications. We will continue with IV antibiotics. Blood and urine culture shows no growth to date. He states he is feeling much better now. We will continue with IV antibiotics. Pulmonary has been consulted as well. As for his factor V Leiden deficiency, we will continue with Xarelto as he was taking by his oncologist as an outpatient. Oncology was consulted here as well. I discussed this case with Pulmonary. No further workup was needed. Urology came and evaluated the patient. No further workup is needed. There is no evidence of any hematuria. We will continue with same plan of care and monitor very closely. If he is doing well and he is afebrile by tomorrow morning, I will go ahead and discharge him so he can make his appointment tomorrow at 11:30 at [facility]. MD FATEMEH Tong/ELISABETH /[id number]
--- NOTE | 2019-07-22 19:23 | NUR ---
Received change of shift report from AM. Walking rounds completed.
[2019-07-22] MEDS: ATORVASTATIN 40 MG TAB PO SCH (21:00)
--- NOTE | 2019-07-22 21:00 | NUR ---
Patient toke a bath and now sitting up in chair. Denied pain or discomfort at this time.
--- NOTE | 2019-07-22 21:08 | Consultation ---
DATE OF CONSULTATION: 07/22/2019 Pulmonary Medicine Consult REFERRING PHYSICIAN: Carolina Plascencia MD. REASON FOR REFERRAL: Abnormal chest radiography. HISTORY OF PRESENT ILLNESS: Mr. Bai is a pleasant 68-year-old gentleman with abnormal chest radiography. The patient was admitted to [facility] on July 21, 2019. The patient was complaining of chest pains. The patient had the pains for two days. The patient has history of bilateral pulmonary emboli and was found to have Factor V Leiden deficiency many years ago. The patient ever since has been on anticoagulation. The patient notably has been without blood clot since. However, in roughly March of 2019, the patient underwent a TURP procedure by Urology. The patient has been on and off anticoagulation as he has had some low-level recurrent bleeding since. Most recently, he has been off of anticoagulation. The patient therefore is also concerned about blood clots. The patient underwent CT chest with contrast demonstrating bilateral very small pleural effusions, lungs being clear, a subpleural granuloma as well as multiple splenic granulomas. I am consulted. PAST MEDICAL HISTORY: Hypertension, hyperlipidemia, TURP in March 2019, DVT and PE, factor V Leiden deficiency, left total knee replacement, arthritis limiting his functionality, obstructive sleep apnea. Coccidiodes meningitis. MEDICATIONS: Medication list reviewed per the chart record. ALLERGIES: NO KNOWN DRUG ALLERGIES. SOCIAL HISTORY: No smoking. No drinking. No drugs. The patient moves all over the country throughout his life. He was born in [place], [place], then he lived in [place], [place], then he went to [place], then he went to [place], [place], then he went to [facility], then he went to [place] and then [facility]. All these time he was with his family where his father was in the [employer] and they usually lives at places for 3 years or less. Subsequently, the patient in 1971 joined the [employer] and he has been traveling all around since. He lived in [place] in the past. 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 FAMILY HISTORY: Noncontributory. REVIEW OF SYSTEMS: GENERAL: No weight changes. OPHTHALMOLOGIC: No vision changes. ENT: No mouth ulcers. ENDOCRINE: No thyroid disease known. LUNGS: No asthma. CARDIAC: No heart attack. GI: No constipation. : No recent stones. PSYCHIATRIC: No depression. NEUROLOGIC: No seizures. DERMATOLOGIC: No rashes. OBJECTIVE: VITAL SIGNS: Afebrile, vital signs noted reviewed per the chart record. GENERAL: In no acute distress, alert and calm. HEENT: Normocephalic, atraumatic. NECK: Supple. Throat midline. LUNGS: Bilateral air entry, mostly clear, slightly limited due to chest tightness ABDOMEN: Soft, nontender. EXTREMITIES: No clubbing, no cyanosis. There is no edema. INTEGUMENT: No rash. No purpura. LABORATORY DATA: 3.6 potassium, 14 BUN, 0.7 creatinine. 13 white count, 38 hematocrit, 255 platelets. Radiography as above. IMPRESSION AND PLAN: 1. Abnormal chest radiography, very ultra small bilateral pleural effusion, not otherwise specified. 2. History of remote granulomatous disease. Classic pattern for histoplasmosis. Consideration for other exposures can be made as well. 3. History of coccidioides meningitis long ago. 4. Admitted for chest tightness, not otherwise specified. 5. History of bilateral PE, factor V Leiden deficiency. Reported heterozygote?. 6. History of arthritis, limiting mobility. 7. Hypertension, hyperlipidemia, history of TURP with postoperative intermittent bleeding on anticoagulants. 8. Obstructive sleep apnea. I agree with given a challenge to restart anticoagulation. We will follow along closely. The granulomatous disease appears mostly either burnt out or in remission --clinical follow up on this. He will need monitoring of the chest x-ray pleural fluid and possibly another x-ray in a couple months to ensure it is not worsening. The patient can recently have screening to assess why he has pleural effusion, but for now the effusions are too smal for thoracentesis. Thank you very much, Dr. Plascencia, for allowing me a chance to participate in care of Mr. Bai. Please call for questions. MD KARLA Horvath/ELISABETH /[id number]
[2019-07-23] VITALS (8 sets, daily range): BP systolic 116–131; BP diastolic 56–61
--- NOTE | 2019-07-23 03:24 | Consultation ---
DATE OF CONSULTATION: 07/22/2019 CONSULTING PHYSICIAN: Adriana Chavez, Hematology-Oncology Service. REASON FOR CONSULTATION: Evaluation and management of patient with known history of factor V Leiden mutation, presented with chest pain and shortness of breath. HISTORY OF PRESENTING ILLNESS: Mr. Bai is a very pleasant 68-year-old gentleman with known history of factor V Leiden mutation, history of DVT and bilateral pulmonary embolism, hyperlipidemia, hypertension, benign prostatic hypertrophy, status post transurethral resection of prostate and intermittent hematuria, presents to the emergency department due to chest pain and shortness of breath. In the emergency department, he underwent workup including CT chest with contrast revealing small bilateral pleural effusion without any pulmonary infiltrate. The patient was admitted to inpatient floor and evaluated by Cardiology to rule out acute coronary syndrome. Now, Hematology-Oncology has been consulted to assist with the management. PAST MEDICAL HISTORY: 1. Hypertension. 2. Hyperlipidemia. 3. Homozygous factor V Leiden mutation. 4. History of DVT and bilateral lateral PE in September of 2017. 5. Benign prostatic hypertrophy. 6. Intermittent hematuria. PAST SURGICAL HISTORY: 1. Transurethral resection of the prostate. 2. Cystoscopy. FAMILY HISTORY: Positive for hypertension and diabetes. SOCIAL HISTORY: Denies history of smoking, alcohol use, or illicit drug use. He has recently moved from [place] to [place] 1-12 year ago. ALLERGIES: NO KNOWN DRUG ALLERGIES. CURRENT MEDICATIONS: Reviewed as per electronic medical record. REVIEW OF SYSTEMS: A 14-point review of systems negative except as mentioned in history of presenting illness. PHYSICAL EXAMINATION: VITAL SIGNS: Reviewed as per electronic medical record. HEENT: PERRLA. Extraocular movement intact. Head is atraumatic and normocephalic. NECK: Supple. CV: S1, S2 audible. RESPIRATORY: Decreased bilateral air entry. ABDOMEN: Soft. Positive bowel sounds. EXTREMITIES: Positive edema. NEURO: The patient is alert and awake. LABORATORY DATA: Reviewed as per electronic medical record. ASSESSMENT AND PLAN: Mr. Bai is a very pleasant 68-year-old gentleman with known history of hypertension, coronary artery disease, hyperlipidemia, and homozygous factor V Leiden mutation, chronically on anticoagulation. He also was diagnosed with DVT and bilateral PE back in September 2017 that led to the diagnosis of Factor five mutation. Recently, he has been having genitourinary issues, subsequently underwent workup revealing benign prostatic hypertrophy, requiring transurethral resection of prostate. Since then, he has been having intermittent hematuria, requiring intermittent discontinuation of anticoagulation. Now, he has presented to the Emergency Department due to chest pain and shortness of breath. Intermittent workup includes CT with contrast, which did not show any acute pathology. CT angio was not performed. Now, Hematology-Oncology has been consulted to assist with the management. I have reviewed the records and discussed at length with the patient about his current disease and importance of monitoring and continuation of anticoagulation. He has been noncompliant with anticoagulation due to medical reasons specifically intermittent hematuria. He might have developed mild pulmonary embolism, which is not detectable on current CT scan. Of note, patient did not have CT angiogram. At this point, recommendation would be to just continue anticoagulation as getting further workup will not jacket changer. He need to be compliant with anticoagulation. This could be challenging due to intermittent hematuria. I agree with continuation of Xarelto at loading dose followed by maintenance dose. There, well could be an option to reduce the dose 15 mg p.o. daily if he continued to have hematuria. If he stays stable and no other issues, he can be discharge home with his oncologist. Thank you for the consult. I will continue to be available. Please call with question. MD ZANDER Wang/ELISABETH /[id number]
[2019-07-23 06:17] LABS: BASOPHILS # (AUTO) 0.1 (0.0-0.1); BASOPHILS % 0.5 % (0.0-1.0); EOSINOPHILS # (AUTO) 0.2 (0.0-0.4); EOSINOPHILS % 1.1 % (0.0-6.0); HEMATOCRIT 36.9 % (38.2-49.6); HEMOGLOBIN 12.8 g/dL (14.0-18.0); LYMPHOCYTES # (AUTO) 1.3 (1.0-3.2); LYMPHOCYTES % 9.1 % (18.0-39.1); MEAN CORPUSCULAR HEMOGLOBIN 30.3 pg (28-32); MEAN CORPUSCULAR HGB CONC 34.7 g/dL (31-35); MEAN CORPUSCULAR VOLUME 87.2 fL (81-99); MONOCYTES # (AUTO) 1.9 (0.2-0.8); MONOCYTES % 12.6 % (4.4-11.3); NEUTROPHILS # (AUTO) 11.2 (2.1-6.9); NEUTROPHILS % 76.2 % (38.7-80.0); PLATELET COUNT 250 x10e3/uL (140-360); RED BLOOD COUNT 4.23 x10e6/uL (4.3-5.7); RED CELL DISTRIBUTION WIDTH 12.1 % (11.7-14.4)
[2019-07-23 06:47] LABS: ANION GAP 13.6 mmol/L (8-16); BLOOD UREA NITROGEN 14 mg/dL (7-26); BUN/CREATININE RATIO 18 (6-25); CALCIUM 9.2 mg/dL (8.4-10.2); CARBON DIOXIDE 22 mmol/L (22-29); CHLORIDE 105 mmol/L (98-107); CREATININE, SERUM 0.76 mg/dL (0.72-1.25); EST GLOMERULAR FILTRATION RATE > 60 ML/MIN (60-); GLUCOSE 134 mg/dL (74-118); POTASSIUM 3.6 mmol/L (3.5-5.1); SODIUM 137 mmol/L (136-145)
[2019-07-23] MEDS: RIVAROXABAN 20 MG TABLET PO SCH ×2 (09:20→20:04)
[2019-07-23] MEDS: CEFTRIAXONE SOD 1 GM/NS 50 ML 50 ML IV SCH (09:20)
[2019-07-23] MEDS: HYDROCODONE/APAP 5MG-325MG TAB PO PRN (10:51)
[2019-07-23] MEDS: AZITHROMYCIN 500MG/NS 250 ML 250 ML IV SCH (11:00)
[2019-07-23] MEDS: FAMOTIDINE 20 MG/2 ML VIAL IV SCH ×2 (11:06→23:30)
--- NOTE | 2019-07-23 11:23 | Diagnostic Imaging Report ---
CT of the abdomen and pelvis, without contrast. History: Fever, history of kidney stones. Comparison: CT of chest from 07/21/2019. Technique: Multidetector CT scanning of the abdomen and pelvis was performed from the level of the lung bases to the inferior pubic rami without the use of contrast material. Coronal and sagittal multiplanar reformations were obtained. RADIATION DOSE: Total DLP: 709.35 mGy*cm Dose modulation, iterative reconstruction, and/or weight based adjustment of the mA/kV was utilized to reduce the radiation dose to as low as reasonably achievable. FINDINGS: There are trace bilateral pleural effusions associated compressive atelectasis of the lower lobes. A calcified granuloma is noted within the left lung base. The liver is normal in size and attenuation. Subcentimeter hypodensities are noted within the liver which are too small to definitively characterize. Small calcified gallstones are noted within the gallbladder. There is no evidence for gallbladder distention, wall thickening, or pericholecystic fluid. There is no biliary ductal dilatation. Granulomas calcifications are noted within the spleen. The stomach, pancreas, and bilateral adrenal glands demonstrate an unremarkable noncontrast appearance. The kidneys are normal in size and location. 2 nonobstructing stones are identified within the inferior pole of the left kidney measuring 7 mm and 5 mm. There is no evidence for hydronephrosis. The ureters are normal in course and caliber. The urinary bladder and prostate demonstrate no significant abnormalities. The abdominal aorta is normal course and caliber with mild atherosclerotic calcifications. The IVC is normal in caliber. Please note evaluation the bowel is limited without the use of enteric contrast material. The visualized loops of small and large bowel demonstrate no evidence of obstruction or inflammation. Mild diverticula noted within the descending colon without evidence for acute diverticulitis. There is no ascites or intraperitoneal free air. Scattered normal sized mesenteric lymph nodes are noted. No abnormally enlarged lymph nodes are identified within the abdomen or pelvis. The osseous structures and degenerative changes without evidence for acute fracture or destructive process. The extraperitoneal soft tissues are unremarkable. IMPRESSION: Nonobstructive left-sided nephrolithiasis. No evidence for hydronephrosis or obstructive uropathy. Cholelithiasis without evidence for acute cholecystitis. Trace bilateral pleural effusions as noted on the recent prior CT chest examination. Signed by: Dr. Bryn Suárez MD on 07/23/2019 11:20 AM
--- NOTE | 2019-07-23 12:57 | Progress Note ---
DATE: 07/23/2019 Medicine Progress Note SUBJECTIVE: The patient still had fever documented here 100.9 yesterday and last night at 8:00 p.m. as well as this morning at 8:00 a.m. Despite the patient having no symptoms, fever was still documented in the computer. He denies any cough, congestion, or any chest pain. PHYSICAL EXAMINATION: VITAL SIGNS: Current vitals temperature is 100.9, T-max is 100.9, pulse 78, respiratory rate is 22, blood pressure is 118/58, pulse ox 95% on room air. GENERAL: Not in acute distress. Alert and oriented x3. Cooperative on examination. HEENT: Head; normocephalic, atraumatic. Eyes; pupils are equal, round, and reactive to light bilaterally. Extraocular movements intact bilaterally. Throat; no evidence of erythema or exudates in the posterior pharynx. Has poor dentition. NECK: Supple. Good range of motion throughout. PULMONARY: Clear to auscultation bilaterally. No wheezing, rales, or rhonchi. No crackles appreciated. CARDIOVASCULAR: Positive S1, S2. No murmurs, rubs, or gallop appreciated. ABDOMEN: Soft, nontender, nondistended to palpation. Bowel sounds present. MUSCULOSKELETAL: Strength is 5/5 throughout. No evidence of any muscle deficits on examination. No weakness appreciated. NEUROLOGIC: Cranial nerves 2 through 12 were grossly intact. No evidence of any neurological deficits on exam. SKIN: Intact. Warm to touch. Good cap refill. PSYCHIATRIC: Normal affect and mood. EXTREMITIES: No edema. Good range of motion throughout. LABORATORY DATA: Lab findings show WBCs 14.6, hemoglobin 12.8, hematocrit 36.9, platelets of 250, coagulation PT 13, INR 0.94, PTT 32. Chemistry; sodium 137, potassium 3.6, chloride 105, bicarb 22, anion gap of 13, BUN 14, creatinine 0.76, glucose is 134, calcium is 9.2. LFTs within normal range. MICROBIOLOGY: Blood cultures no growth. Urine cultures, no growth. IMPRESSION: 1. Chest pain, atypical in nature. No further workup needed by Cardiology. 2. Probable community-acquired pneumonia. 3. Factor V Leiden mutation diagnosed. 4. Shortness of breath, now resolved. 5. Hyperlipidemia. 6. Hypertension. 7. Low-grade fever. PLAN: At this time, I will go and get a CT abdomen and pelvis without contrast as the patient has a history of nephrolithiasis and continues to have fever documentation. His white count was slightly elevated today. We will get morning labs. Continue with IV antibiotic therapy. I discussed this case with Urology, who agrees with CT abdomen and pelvis to look for stones. He will continue with Xarelto for history of Factor V Leiden. As per Cardiology, no further workup. As per Urology, no further workup needed. As per Hematology, no further workup needed. No further workup by Pulmonary. I did consult with ID due to low-grade fever. This seems that the patient may truly just have a viral etiology, but it will be very difficult for me to discharge him with documented fever. I will go ahead and add [place] for pain as he continues to complain of chronic pain issues. Otherwise, we will get repeat labs in the morning and see what the CT abdomen and pelvis results are. MD FATEMEH Tong/ELISABETH /[id number]
--- NOTE | 2019-07-23 15:20 | NUR ---
Visit made by the Spiritual Care Department Pastoral Visitor, Iris Carpenter. PV provided pastoral presence, prayer, hospitality, and supportive listening. Pastoral Visitor informed pt/family of the scope of [employer] and availability. ALVINA ORTIZ Skein Mercerizing Machine Operator Spiritual Care Department O: [phone] Pager: [phone] ([phone] calling from)
[2019-07-23] MEDS ORDERED: LEXAPRO10 MG PO (15:40)
--- NOTE | 2019-07-23 18:44 | Consultation ---
DATE OF CONSULTATION: 07/23/2019 REASON FOR CONSULTATION: Fever. HISTORY OF PRESENT ILLNESS: This patient, who is a very pleasant 68-year-old, history of obesity, comes in with chest pain. He was seen by Dr. Castelan, who is his sales and events coordinator. The patient recently had a transurethral prostatectomy back in March. He did have some hematuria. He was on Xarelto and that was stopped. He came to the emergency room with a chest pain on the left side, pleuritic and worse with aspiration. The patient, who does have history of pulmonary embolism in 2018, history of DVT in 2018, hypertension, sleep apnea, obesity, and status post transurethral prostatectomy, was admitted. He was given Lovenox and Xarelto. The patient is feeling better. His chest pain is better. However, he still is having some low fever, so I am asked to see him. The patient, who is currently lying in bed, comfortable. REVIEW OF SYSTEMS: HEENT: Negative. PULMONARY: Negative. CARDIAC: Negative. : Negative. SKIN: There is no other rash. The patient, who also have history of factor V Leiden mutation, history of DVT, and pulmonary embolism. A CT chest with contrast, small bilateral pleural effusion without any pulmonary infiltrate. He was admitted. He has been seen by Pulmonary, was seen by Cardiology. LABORATORY DATA: I am told he does have an echo done, but I do not have it. His cultures are negative. His white count is 14.6 and hemoglobin 12.8. Sodium 137, potassium 3.7, and creatinine 0.76. PHYSICAL EXAMINATION: GENERAL: He is currently alert and oriented. Does not seem to be in acute distress. VITAL SIGNS: Stable currently. T-max has been 100.1. HEENT: He is not icteric. NECK: Supple. CHEST: Clear bilateral. COR: S1 and S2. No S3, S4, or murmur. ABDOMEN: Soft. IMPRESSION: Fever since admission, chest pain. There is no evidence of pleural effusion. Apparently, recommend to obtain procalcitonin. Obtain echocardiogram. The patient clinically seemed to be stable. Discontinue Rocephin and azithromycin from now. We will discuss with Dr. Castelan about the echocardiogram to rule out pericarditis or other. We will follow. MD ADRIAN Brandt/ELISABETH /[id number]
--- NOTE | 2019-07-23 20:00 | NUR ---
Received change of shift report from AM nurse. Walking rounds completed.
[2019-07-23] MEDS: ATORVASTATIN 40 MG TAB PO SCH (20:04)
[2019-07-23] MEDS: ESCITALOPRAM OXALATE 10 MG TAB PO SCH (20:04)
[2019-07-23] MEDS: ACETAMINOPHEN 325 MG TAB PO PRN (20:24)
--- NOTE | 2019-07-23 22:10 | NUR ---
Patient ambulating in halls with . Denies pain at this time. Continue monitor.
[2019-07-24] VITALS (7 sets, daily range): BP systolic 118–138; BP diastolic 57–68
--- NOTE | 2019-07-24 01:22 | NUR ---
Pulmonary Medicine DATE 07/23/2019 SUBJECTIVE: ra FIO2 EATING WELL patient walked, he is slightly weak WBC persistent high REVIEW OF SYSTEMS: No vision changes. No constipation. OBJECTIVE: VITAL SIGNS: vital signs noted reviewed per the chart record. GENERAL: no acute distress, alert and calm. HEENT: Normocephalic, atraumatic. NECK: Supple. Throat midline. LUNGS: Bilateral air entry, mostly clear, slightly limited due to chest tightness ABDOMEN: Soft, nontender. EXTREMITIES: No clubbing, no cyanosis. no edema. INTEGUMENT: No rash. No purpura. LABORATORY DATA: wbc 15k, hct 37, k 3.6, cr 0.76 IMPRESSION AND PLAN: 1. Abnormal chest radiography, very ultra small bilateral pleural effusion NOS 2. Hx remote granulomatous disease. Classic pattern for histoplasmosis. Consideration for other exposures can be made as well. 3. Hx previous coccidioides meningitis 4. Admitted for chest tightness, not otherwise specified. 5. Hx bilateral PE, factor V Leiden deficiency. Reported heterozygote?. 6. Hx arthritis, limiting mobility. 7. Hypertension, hyperlipidemia, hx TURP with postoperative intermittent bleeding on anticoagulants. 8. Obstructive sleep apnea. continue challenge with anticoagulation. follow for bleeding clinical follow up on granulomatous disease . likely burnt out future monitoring of the chest x-ray pleural fluid and possibly another x-ray in a couple months to ensure it is not worsening. The patient can recently have screening to assess why he has pleural effusion, but for now the effusions are too small for thoracentesis. Thank you very much, Dr. Plascencia, for allowing me a chance to participate in care of Mr. Bai. Please call for questions.
[2019-07-24 06:01] LABS: BASOPHILS # (AUTO) 0.1 (0.0-0.1); BASOPHILS % 0.3 % (0.0-1.0); EOSINOPHILS # (AUTO) 0.2 (0.0-0.4); EOSINOPHILS % 1.5 % (0.0-6.0); HEMOGLOBIN 11.7 g/dL (14.0-18.0); LYMPHOCYTES # (AUTO) 0.9 (1.0-3.2); LYMPHOCYTES % 6.2 % (18.0-39.1); MEAN CORPUSCULAR HEMOGLOBIN 30.4 pg (28-32); MEAN CORPUSCULAR HGB CONC 34.4 g/dL (31-35); MEAN CORPUSCULAR VOLUME 88.3 fL (81-99); MONOCYTES # (AUTO) 1.9 (0.2-0.8); MONOCYTES % 12.3 % (4.4-11.3); NEUTROPHILS # (AUTO) 11.9 (2.1-6.9); PLATELET COUNT 229 x10e3/uL (140-360); RED BLOOD COUNT 3.85 x10e6/uL (4.3-5.7)
[2019-07-24 06:27] LABS: ANION GAP 12.4 mmol/L (8-16); BLOOD UREA NITROGEN 15 mg/dL (7-26); BUN/CREATININE RATIO 19 (6-25); CALCIUM 8.8 mg/dL (8.4-10.2); CARBON DIOXIDE 24 mmol/L (22-29); CHLORIDE 106 mmol/L (98-107); CREATININE, SERUM 0.78 mg/dL (0.72-1.25); EST GLOMERULAR FILTRATION RATE > 60 ML/MIN (60-); GLUCOSE 141 mg/dL (74-118); POTASSIUM 3.4 mmol/L (3.5-5.1); SODIUM 139 mmol/L (136-145)
[2019-07-24] MEDS: ESCITALOPRAM OXALATE 10 MG TAB PO SCH (08:33)
[2019-07-24] MEDS: RIVAROXABAN 20 MG TABLET PO SCH ×2 (08:33→21:47)
[2019-07-24] MEDS: ACETAMINOPHEN 325 MG TAB PO PRN ×2 (08:34→21:59)
--- NOTE | 2019-07-24 12:40 | Progress Note ---
DATE: 07/24/2019 Medicine Progress Note SUBJECTIVE: The patient continues to have fever on examination. Of note, last night he had a temperature of 101.7. This morning, he had a temperature of 101.3. The patient is asymptomatic, doing well, alert, awake and talked to me on examination. PHYSICAL EXAMINATION: VITAL SIGNS: T-max 101.7, current temperature 101.3, pulse 92, respiratory rate is 20, blood pressure 122/61, and pulse ox 94% on room air. GENERAL: Not in acute distress. Alert and oriented x3. Cooperative on examination. HEENT: Head; normocephalic, atraumatic. Eyes; pupils are equal, round, and reactive to light bilaterally. Extraocular movements intact bilaterally. Throat; no evidence of erythema or exudates in the posterior pharynx. Has poor dentition. NECK: Supple. Good range of motion. PULMONARY: Clear to auscultation bilaterally. No wheezing, no rales, no rhonchi, no crackles appreciated. CARDIOVASCULAR: Positive S1 and S2. No murmurs, rubs, or gallops appreciated. ABDOMEN: Soft, nondistended, and nontender to palpation. Bowel sounds present. MUSCULOSKELETAL: Strength is 5/5 throughout. No evidence of any muscle deficits on examination. No weakness appreciated. NEUROLOGIC: Cranial nerves II through XII grossly intact. No evidence of any neurological deficits on exam. SKIN: Intact. Warm to touch. Good cap refill. PSYCHIATRIC: Normal affect and mood. EXTREMITIES: No edema. Good range of motion throughout. LABORATORY FINDINGS: Show white count is 15, hemoglobin 11.7, hematocrit is 34, and platelets of 229. Coagulation normal. Chemistry; sodium 139, potassium is 3.4, chloride 106, bicarb 24, anion gap of 12, BUN 15, creatinine 0.78, glucose 141, and calcium is 8.8. LFTs within normal range. Troponins are all negative. Albumin 3.4. LDL 101. MICROBIOLOGY: Blood cultures negative. Urine cultures were negative. IMAGING STUDIES: CT abdomen and pelvis without culture shows nonobstructive left-sided nephrolithiasis. No evidence of hydronephrosis or obstructive uropathy. Cholelithiasis without evidence for acute cholecystitis. Trace bilateral pleural effusions seen. IMPRESSION: 1. Atypical chest pain. 2. Fever, probably secondary to some viral etiology, unknown at this time. 3. Factor V Leiden mutation diagnosed. 4. Shortness of breath, resolved. 5. Hyperlipidemia. 6. Hypertension. PLAN: At this time, CT abdomen and pelvis review shows no evidence of any obstruction. Continues to have fever despite not having any symptoms. White count is elevated at 15. Spoke with ID. He does not feel like that the patient has any kind of infectious etiology. At this time, we agreed to get a V/Q scan. I ordered venous Doppler of the lower extremity to rule out any kind of DVT and PE despite him being on Xarelto, which could explain possibly his fever and low-grade and his leukocytosis. Antibiotics were discontinued yesterday. All cultures were found to be negative. I did also order repeat labs in the morning and a procalcitonin level for now. As per Urology, no further workup was needed. As per Cardiology, no further workup. Hematology, no further workup. Once he has been afebrile and he is doing well with no issues and cleared by ID, then I will consider discharging the patient home. I discussed this plan of care with the patient, the patient's , including the nursing staff present throughout the entire conversation and he verbalized understanding and agrees to plan of care to be monitored very closely. We will monitor him overnight, again repeat labs in the morning. I will also go ahead and order an ESR and CRP. MD FATEMEH Tong/ELISABETH /[id number]
[2019-07-24] MEDS ORDERED: spirinolactone PO (14:06)
[2019-07-24] MEDS ORDERED: MICARDIS40 MG PO (14:06)
--- NOTE | 2019-07-24 16:12 | NUR ---
Dr Minaya had rounds, patient off the unit for V/Q Scan
[2019-07-24] MEDS: FAMOTIDINE 20 MG/2 ML VIAL IV SCH ×2 (17:33→23:37)
[2019-07-24] MEDS: HYDROCODONE/APAP 5MG-325MG TAB PO PRN (17:52)
--- NOTE | 2019-07-24 19:05 | NUR ---
Received report from day nurse. patient is resting comfortably in bed. bed is in lowest position and call stafford is within reach. will continue to monitor patient.
--- NOTE | 2019-07-24 19:11 | Diagnostic Imaging Report ---
Ventilation/perfusion lung scan Clinical Information: Chest pain and SOB; Factor V Leiden mutation; uses Bi-PAP at night Comparison: Chest radiograph 07/21/2019; CT chest 07/21/2019 Discussion: Xenon-133 gas 10 mCi was administered via inhalation. Dynamic images of the lungs in the posterior projection were obtained through single breath, equilibrium, and washout phases. Distribution of tracer activity is irregular throughout the lungs. There are no segmental ventilatory defects. Washout of tracer is diffusely delayed with diffuse air trapping. Perfusion images of the lungs were obtained in multiple projections following intravenous administration of approximately 6.2 mCi of Tc-99m MAA. Distribution of tracer is irregular throughout the lungs. The contours of the lungs are well demarcated. There are no segmental perfusion defects of any size. The cardiomediastinal silhouette is unremarkable. Impression: 1. Scan findings represent a VERY LOW probability for acute pulmonary embolic disease based on the PIOPED II criteria. 2. Scan evidence of obstructive lung disease. Signed by: Dr. Katie Cardoza M.D. on 07/24/2019 7:08 PM
--- NOTE | 2019-07-24 19:33 | Progress Note ---
DATE: 07/24/2019 SUBJECTIVE: Mr. Bai, who is doing good. There are no complaints. He is still having fever. REVIEW OF SYSTEMS: HEENT: Negative. PULMONARY: Negative. He still has some chest pain, but he is comfortable. EXTREMITIES: He also has some pain in the right knee. His review of systems otherwise unremarkable except for mentioned above. PHYSICAL EXAMINATION: GENERAL: He is alert and oriented. Does not seem to be in acute distress. VITAL SIGNS: Stable, currently afebrile. He did have fever earlier. His T-max 101.3, but currently there is no fever. HEENT: He is not icteric. NECK: Supple. CHEST: Clear. HEART: S1 and S2. No murmur. ABDOMEN: Soft. His physical examination as mentioned above, unremarkable. IMPRESSION: Fever. Discussed with Dr. Plascencia, could be reactive. The patient is clinically doing well, has no complaints. His examination is unremarkable. We did not do CT angiogram CT of the abdomen and pelvis. I ordered a procalcitonin level, but I do not think the patient has infection. Clinically, it sounds more like inflammatory process. He does have underlying history of deep venous thrombosis and pulmonary embolism. Recommend to do a V/Q scan. His review of systems as mentioned above is all negative otherwise. His sedimentation rate is 78. To summarize fever, leukocytosis, probably reactive concerned about pulmonary embolism/deep venous thrombosis. We will obtain collagen workup. If workup remains negative, could be discharged home and follow up as an outpatient. MD ADRIAN Brandt/ELISABETH /[id number]
[2019-07-24] MEDS: ATORVASTATIN 40 MG TAB PO SCH (21:47)
[2019-07-25] VITALS (8 sets, daily range): BP systolic 101–142; BP diastolic 59–69
--- NOTE | 2019-07-25 01:52 | NUR ---
Pulmonary Medicine DATE 07/24/2019 SUBJECTIVE: RA FIO2 EATING temp max 101.3 patient walked, stronger WBC persistent high no bleed REVIEW OF SYSTEMS: No vision changes. No constipation. OBJECTIVE: VITAL SIGNS: vital signs noted reviewed per the chart record. GENERAL: no acute distress, alert and calm. HEENT: Normocephalic, atraumatic. NECK: Supple. Throat midline. LUNGS: Bilateral air entry, mostly clear, slightly limited due to chest tightness ABDOMEN: Soft, nontender. EXTREMITIES: No clubbing, no cyanosis. no edema. INTEGUMENT: No rash. No purpura. LABORATORY DATA: k 3.4, cr 0.78. wbc 15, hct 34, plt 229 IMPRESSION AND PLAN: 1. Abnormal chest radiography, very ultra small bilateral pleural effusion NOS 2. Hx remote granulomatous disease. r/o ongoing activity. Classic pattern for histoplasmosis. Consideration for other exposures can be made as well. 3. Hx previous coccidioides meningitis 4. Admitted for chest tightness, not otherwise specified. 5. Hx bilateral PE, factor V Leiden deficiency. Reported heterozygote?. 6. Hx arthritis, limiting mobility. 7. Hypertension, hyperlipidemia, hx TURP with postoperative intermittent bleeding on anticoagulants. 8. Obstructive sleep apnea. 9. febrile syndrome NOS continue challenge with anticoagulation. follow for bleeding clinical follow up on granulomatous disease . likely burnt out --given persistent fevers check fungal Ags/Abs Check QUINN, RF, LDH future monitoring of the chest x-ray pleural fluid and possibly another x-ray in a couple months to ensure it is not worsening. The patient can recently have screening to assess why he has pleural effusion, but for now the effusions are too small for thoracentesis. Thank you very much, Dr. Plascencia, for allowing me a chance to participate in care of Mr. Bai. Please call for questions.
[2019-07-25 05:37] LABS: BASOPHILS # (AUTO) 0.1 (0.0-0.1); BASOPHILS % 0.4 % (0.0-1.0); EOSINOPHILS # (AUTO) 0.4 (0.0-0.4); EOSINOPHILS % 2.1 % (0.0-6.0); HEMATOCRIT 37.3 % (38.2-49.6); HEMOGLOBIN 12.8 g/dL (14.0-18.0); LYMPHOCYTES # (AUTO) 1.2 (1.0-3.2); LYMPHOCYTES % 6.9 % (18.0-39.1); MEAN CORPUSCULAR HGB CONC 34.3 g/dL (31-35); MEAN CORPUSCULAR VOLUME 87.6 fL (81-99); MONOCYTES % 11.9 % (4.4-11.3); NEUTROPHILS # (AUTO) 13.1 (2.1-6.9); PLATELET COUNT 277 x10e3/uL (140-360); RED BLOOD COUNT 4.26 x10e6/uL (4.3-5.7); RED CELL DISTRIBUTION WIDTH 12.3 % (11.7-14.4)
[2019-07-25 05:53] LABS: ANION GAP 14.5 mmol/L (8-16); BLOOD UREA NITROGEN 12 mg/dL (7-26); BUN/CREATININE RATIO 16 (6-25); CALCIUM 9.3 mg/dL (8.4-10.2); CARBON DIOXIDE 23 mmol/L (22-29); CHLORIDE 102 mmol/L (98-107); CREATININE, SERUM 0.75 mg/dL (0.72-1.25); EST GLOMERULAR FILTRATION RATE > 60 ML/MIN (60-); GLUCOSE 137 mg/dL (74-118); POTASSIUM 3.5 mmol/L (3.5-5.1); SODIUM 136 mmol/L (136-145)
[2019-07-25] MEDS: ACETAMINOPHEN 325 MG TAB PO PRN ×2 (06:29→22:40)
--- NOTE | 2019-07-25 06:50 | NUR ---
REPORT GIVEN TO DAY NURSE. PATIENT IS RESTING COMFORTABLY IN BED. BED IS IN LOWEST POSITION AND CALL DIAS IS WITHIN REACH.
[2019-07-25 08:21] LABS: HIV 1&2 AB SCREEN NON-REACTIVE (NONREACTIVE)
[2019-07-25] MEDS: SPIRONOLACTONE 25 MG TAB PO SCH (08:33)
[2019-07-25] MEDS: HYDROCHLOROTHIAZIDE 25 MG TAB PO SCH (08:33)
[2019-07-25] MEDS: ESCITALOPRAM OXALATE 10 MG TAB PO SCH (08:34)
[2019-07-25] MEDS: TELMISARTAN 40 MG TAB PO SCH (08:34)
[2019-07-25] MEDS: RIVAROXABAN 20 MG TABLET PO SCH ×2 (08:34→22:40)
[2019-07-25] MEDS: HYDROCODONE/APAP 5MG-325MG TAB PO PRN (08:36)
[2019-07-25] MEDS: FAMOTIDINE 20 MG/2 ML VIAL IV SCH ×2 (12:07→22:40)
--- NOTE | 2019-07-25 13:06 | NUR ---
paged Dr Sravanthi Castelan to read the final report of Venous doppler as per Dr Plascencia.
[2019-07-25] MEDS ORDERED: GADOBENATE DIMEGLUMINE 1 ML IV ONE ×2 (14:01→14:04)
[2019-07-25] MEDS ORDERED: SODIUM CHLORIDE 0.9% 50ML 50 ML ONE (14:04)
--- NOTE | 2019-07-25 14:08 | NUR ---
per Dr Decker Hold the Discharge today, awaiting to do MRI and US, Dr Plascencia aware
--- NOTE | 2019-07-25 17:00 | Diagnostic Imaging Report ---
MRI of the abdomen, with and without contrast, 07/25/2019. History: Recurrent fever, liver lesions. Comparison: CT abdomen without contrast 07/23/2019. Technique: Multiplanar, multisequence imaging of the abdomen was performed pre- and post-IV administration of gadolinium. Discussion: Evaluation is limited due to respiratory motion artifact on majority of the sequences, especially the postcontrast sequence. The liver contour and size are normal. 1 cm T1 hypointense T2 hyperintense lesions are present in the left and right lobes of the liver, corresponding to the hypodensities seen on the CT. Postcontrast, there is no visible enhancement of these areas. The portal vein is patent. There is no evidence of ascites. The gallbladder, spleen, pancreas, kidneys, and adrenal glands are normal in appearance. The visualized loops of bowel and osseous structures are normal. There is no evidence of adenopathy. IMPRESSION: Limited exam, but small hepatic lesions most likely represent small cysts. Otherwise unremarkable liver. Signed by: Pedro Smith on 07/25/2019 4:57 PM
--- NOTE | 2019-07-25 17:24 | Progress Note ---
DATE: 07/25/2019 SUBJECTIVE: Mr. Bai continues to do well. He has no complaints. However, he continued to have fever. Temperature 100.9. Heart rate of 86. His physical examination is totally negative. PHYSICAL EXAMINATION: GENERAL: Currently alert and oriented. Does not seem to be in acute distress. VITAL SIGNS: Stable, currently low fever as above. HEENT: Not icteric. NECK: Supple. CHEST: Clear. COR: S1 and S2. No murmur. ABDOMEN: Soft. IMPRESSION: Low fever still. I had more history from his daughter. She is telling me that they have been back and forth to [place] to bury his sister. She is also telling me that she has cats and he is around the cats. I would recommend to obtain titer for CMV, toxo, Bartonella. We will start azithromycin. Obtain serology for Lyme disease. Obtain CBC with manual differential and peripheral smear. Urine for histoplasmosis and serology for Cryptococcus. We will follow. The patient is clinically stable. He will be discharged. We will continue to workup as an outpatient. We will discuss with medical team. Time spent one hour. The patient was seen earlier and then seen again, and discussed with the medical team at length. MD ADRIAN Brandt/ELISABETH /[id number]
[2019-07-25 18:43] LABS: FREE T4 (FREE THYROXINE) 0.91 ng/dL (0.8-1.8); THYROID STIMULATING HORMONE 0.712 uIU/mL (0.350-4.940)
[2019-07-25] MEDS ORDERED: ONDANSETRON HCL 4 MG ORAL DISINTEGRATING TAB PO PRN (19:45)
[2019-07-25] MEDS: ATORVASTATIN 40 MG TAB PO SCH (22:40)
[2019-07-26] VITALS: BP 133/59
--- NOTE | 2019-07-26 03:33 | NUR ---
Pulmonary Medicine DATE 07/25/2019 SUBJECTIVE: RA fio2 walked right knee/leg edema vascular US right leg no acute dvt on prelim? REVIEW OF SYSTEMS: No vision changes. No constipation. OBJECTIVE: VITAL SIGNS: vital signs noted reviewed per the chart record. GENERAL: no acute distress, alert and calm. HEENT: Normocephalic, atraumatic. NECK: Supple. Throat midline. LUNGS: Bilateral air entry, mostly clear, slightly limited due to chest tightness ABDOMEN: Soft, nontender. EXTREMITIES: No clubbing, no cyanosis. no edema. INTEGUMENT: No rash. No purpura. LABORATORY DATA: wbc 17k, hct 37, plt 277 3.5 k, cr .76 IMPRESSION AND PLAN: 1. Abnormal chest radiography, very ultra small bilateral pleural effusion NOS 2. Hx remote granulomatous disease. r/o ongoing activity. Classic pattern for histoplasmosis. Consideration for other exposures can be made as well. 3. 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 Admitted for chest tightness, not otherwise specified. 5. Hx bilateral PE, factor V Leiden deficiency. Reported heterozygote?. 6. Hx arthritis, limiting mobility. 7. Hypertension, hyperlipidemia, hx TURP with postoperative intermittent bleeding on anticoagulants. 8. Obstructive sleep apnea. 9. febrile syndrome NOS 10. multiple nonspecific liver nodules up to 7 mm continue anticoagulation. follow for bleeding clinical follow up on granulomatous disease. likely burnt out --given persistent fevers check histo/coccidio Ags/Abs Follow QUINN, RF CRP 278 HIV negative. ESR 78. LCH 168 future monitoring of the chest x-ray pleural fluid and possibly another x-ray in a couple months to ensure it is not worsening. The patient can recently have screening to assess why he has pleural effusion, but for now the effusions are too small for thoracentesis. Thank you very much, Dr. Plascencia, for allowing me a chance to participate in care of Mr. Bai. Please call for questions.
[2019-07-26 05:28] VITALS: BP 128/65
[2019-07-26] MEDS: ACETAMINOPHEN 325 MG TAB PO PRN (05:56)
--- NOTE | 2019-07-26 07:22 | NUR ---
report given to day nurse. patient is resting comfortably in bed. bed is in lowest position and call stafford is within reach.
[2019-07-26 07:50] VITALS: BP 126/59
[2019-07-26] MEDS: TELMISARTAN 40 MG TAB PO SCH (08:23)
[2019-07-26] MEDS: RIVAROXABAN 20 MG TABLET PO SCH (08:23)
[2019-07-26] MEDS: HYDROCHLOROTHIAZIDE 25 MG TAB PO SCH (08:23)
[2019-07-26] MEDS: SPIRONOLACTONE 25 MG TAB PO SCH (08:23)
[2019-07-26] MEDS: ESCITALOPRAM OXALATE 10 MG TAB PO SCH (08:23)
[2019-07-26] MEDS: HYDROCODONE/APAP 5MG-325MG TAB PO PRN ×2 (08:24→15:43)
--- NOTE | 2019-07-26 10:17 | Diagnostic Imaging Report ---
Nonvascular ultrasound of the right lower extremity Clinical indications: Right knee swelling Comparison: None Findings: Grayscale and color Doppler ultrasound of the patient's right knee was performed. There is a 4.2 x 1.4 x 2.0 cm Park's cyst in the right popliteal fossa. Impression: Right knee Park's cyst Signed by: Mynor Matta MD on 07/26/2019 10:13 AM
[2019-07-26] MEDS: FAMOTIDINE 20 MG/2 ML VIAL IV SCH (11:07)
[2019-07-26 11:18] VITALS: BP 94/55
[2019-07-26 12:12] VITALS: BP 94/55
[2019-07-26 14:08] LABS: BASOPHILS # (AUTO) 0.1 (0.0-0.1); BASOPHILS % 0.4 % (0.0-1.0); EOSINOPHILS # (AUTO) 0.4 (0.0-0.4); EOSINOPHILS % 2.5 % (0.0-6.0); HEMATOCRIT 36.8 % (38.2-49.6); HEMOGLOBIN 12.8 g/dL (14.0-18.0); LYMPHOCYTES # (AUTO) 0.9 (1.0-3.2); LYMPHOCYTES % 5.2 % (18.0-39.1); MEAN CORPUSCULAR HEMOGLOBIN 30.2 pg (28-32); MEAN CORPUSCULAR HGB CONC 34.8 g/dL (31-35); MEAN CORPUSCULAR VOLUME 86.8 fL (81-99); MONOCYTES # (AUTO) 1.8 (0.2-0.8); MONOCYTES % 10.8 % (4.4-11.3); NEUTROPHILS # (AUTO) 13.1 (2.1-6.9); NEUTROPHILS % 80.3 % (38.7-80.0); PLATELET COUNT 334 x10e3/uL (140-360); RED BLOOD COUNT 4.24 x10e6/uL (4.3-5.7); RED CELL DISTRIBUTION WIDTH 12.4 % (11.7-14.4)
[2019-07-26 15:28] LABS: EOSINOPHILS % (MANUAL) 3 % (0-7); LYMPHOCYTES % (MANUAL) 9 % (19-48); MONOCYTES % (MANUAL) 10 % (3.4-9.0); NEUTROPHILS % (MANUAL) 78 % (40-74); PLATELET ESTIMATE ADEQUATE; PLATELET MORPHOLOGY COMMENT NORMAL; RBC MORPHOLOGY COMMENT NORMAL
[2019-07-26 16:00] VITALS: BP 124/57
[2019-07-26] MEDS ORDERED: FAMOTIDINE 20 MG TAB PO SCH (16:30)
--- NOTE | 2019-07-26 17:02 | NUR ---
IMM LETTER EXPLAINED TO PT. PT VERBALIZED UNDERSTANDING. IMM LETTER SIGNED. COPY TO PT AND COPY TO CHART. PT AWAITING LAB RESULTS TO DETERMINE DC HOME.
--- NOTE | 2019-07-26 17:07 | Progress Note ---
DATE: 07/25/2019 Medicine Progress Note. SUBJECTIVE: The patient was supposed to be discharged on 07/25/2019 and a discharge order was placed and then the patient stayed longer needing further imaging by consultants. This is a late entry note for 07/25/2019. The patient was seen and evaluated at bedside with the nursing staff on 07/25/2019. The patient was doing well with no complaints. He did have a fever overnight with no other issues at this time. His vitals, he was febrile, normotensive. Respiratory rate was good. Labs reviewed were stable. OBJECTIVE: GENERAL: No acute distress. Alert and oriented x3. Cooperative on examination. HEENT: Head, normocephalic, atraumatic. Eyes; pupils are equal, round, and reactive to light bilaterally. Extraocular movements intact bilaterally. Throat; no evidence of erythema or exudates in the posterior pharynx. Has poor dentition. NECK: Supple. Good range of motion PULMONARY: Clear to auscultation bilaterally. No wheezing, rales, or rhonchi. No crackles appreciated. CARDIOVASCULAR: Positive S1 and S2. No murmurs, rubs, or gallops appreciated. ABDOMEN: Soft, nondistended, and nontender to palpation. Bowel sounds present. MUSCULOSKELETAL: Strength is 5/5 throughout. No evidence of any muscle deficits on examination. NEUROLOGIC: Cranial nerves II through XII are grossly intact. No evidence of any neurological deficits on exam. SKIN: Intact. Warm to touch. Good cap refill. PSYCHIATRIC: Normal affect and mood. EXTREMITIES: No edema. Good range of motion throughout. ASSESSMENT: 1. Atypical chest pain. 2. Fever, low-grade temperature concerns for underlying viral etiology with elevated CRP and sedimentation rate. 3. Factor V Leiden mutation diagnosed in the past on anticoagulation. 4. Shortness of breath, resolved. 5. Hyperlipidemia. 6. Hypertension. PLAN: At this time, we did order an MRI of the abdomen as there was some cyst seen on CT scan of the abdomen on the liver. MRI of the abdomen was ordered. We also ordered an ultrasound of the right knee to evaluate for any type of effusion. He is otherwise doing well with no complaints. Continue same plan of care. No antibiotics. Continue with anticoagulation. Follow recommendation by the consultants. Sedimentation rate and CRP were elevated. He will likely need further workup as an outpatient. We will continue to monitor very closely overnight. MD FATEMEH Tong/ELISABETH /[id number]
--- NOTE | 2019-07-26 17:51 | NUR ---
PATIENT DISCHARGE HOME- PATIENT OFF THE UNIT AT 1738 PER WHEELCHAIR ACCOMPANIED BY PCT TO THE FRONT LOBBY. PATIENT IN STABLE CONDITION WITH NO S/S OF RESPIRATORY DISTRESS. NO PAIN VOICED. DISCHARGE TEACHING, INSTRUCTIONS, AND MEDICATION GIVEN TO THE PATIENT. ALL PERSONAL ITEMS WERE TAKEN BY THE PATIENT AND HIS . IV WAS REMOVED WITH TIP INTACT AT 1732.
--- NOTE | 2019-07-26 21:52 | NUR ---
Pulmonary Medicine DATE 07/26/2019 SUBJECTIVE: good appetite RA fio2 right knee edema mild walked REVIEW OF SYSTEMS: No vision changes. No constipation. OBJECTIVE: VITAL SIGNS: vital signs noted reviewed per the chart record. GENERAL: no acute distress, alert and calm. HEENT: Normocephalic, atraumatic. NECK: Supple. Throat midline. LUNGS: Bilateral air entry, mostly clear, slightly limited due to chest tightness ABDOMEN: Soft, nontender. EXTREMITIES: No clubbing, no cyanosis. no edema. INTEGUMENT: No rash. No purpura. LABORATORY DATA: US knee no large effusion MRI liver nonspecific, but mostly benign liver cystic lesions IMPRESSION AND PLAN: 1. Abnormal chest radiography, very ultra small bilateral pleural effusion NOS 2. Hx remote granulomatous disease. r/o ongoing activity. Classic pattern for histoplasmosis. Consideration for other exposures can be made as well. 3. 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 Admitted for chest tightness, not otherwise specified. 5. Hx bilateral PE, factor V Leiden deficiency. Reported heterozygote?. 6. Hx arthritis, limiting mobility. 7. Hypertension, hyperlipidemia, hx TURP with postoperative intermittent bleeding on anticoagulants. 8. Obstructive sleep apnea. 9. febrile syndrome NOS 10. multiple nonspecific liver nodules up to 7 mm continue anticoagulation. follow for bleeding clinical follow up on granulomatous disease. likely burnt out --given persistent fevers check histo/coccidio Ags/Abs Follow QUINN, RF CRP 278 HIV negative. ESR 78. LCH 168 future monitoring of the chest x-ray pleural fluid and possibly another x-ray in a couple months to ensure it is not worsening. The patient can recently have screening to assess why he has pleural effusion, but for now the effusions are too small for thoracentesis. outpatient follow up Thank you very much, Dr. Plascencia, for allowing me a chance to participate in care of Mr. Bai. Please call for questions.
--- NOTE | 2019-08-14 08:28 | Discharge Summary ---
FINAL DISCHARGE DIAGNOSES: 1. Atypical chest pain. 2. Fever with low-grade temperature, concerning for possible underlying viral etiology with elevation of CRP and sedimentation rate. 3. Factor V Leiden mutation, on anticoagulation. 4. Shortness of breath, resolved. 5. Hyperlipidemia. 6. Hypertension. CONSULTANTS: We had Hematology, Infectious Disease, Pulmonary, Cardiology. PHYSICAL EXAMINATION: VITAL SIGNS: Temperature is 99.8, pulse 87, respirations 20, blood pressure 124/57, pulse ox 95% on room air. LABORATORY DATA: Labs show white count was 16, hemoglobin 12.8, hematocrit 36.8, platelets of 334. Coagulation PT 13, INR 0.94, PTT 32. Chemistry sodium 136, potassium 3.5, chloride 102, bicarb 20, anion gap of 14. BUN 12, creatinine 0.75, glucose 137, calcium 9.3. CRP was elevated. Procalcitonin 0.12. TSH is 0.712. Lactate dehydrogenase 168, total bilirubin is 1.6. ALT was 18, AST was 12. Magnesium is 2. Urinalysis negative. Rheumatoid factor 16.5, anti-CCP was 7 and it was negative serology. Toxoplasmosis was negative. HIV was negative. Histoplasmosis was negative. were all negative. MICROBIOLOGY: Blood cultures were negative. Urine cultures were negative. IMAGING STUDIES: Chest x-ray shows a right basilar airspace opacity concerning for underlying pneumonia. Chest CT, small bilateral pleural effusion. No pulmonary infiltrate. Coronary artery disease, atherosclerosis left-sided nephrolithiasis. No evidence of hydronephrosis or obstructive uropathy. Cholelithiasis without evidence of acute cholecystitis. Chest, bilateral pleural effusions. V/Q scan showed very low probability for PE. 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 MRI of the abdomen showed small hepatic lesion, Alzheimer's, small cyst, unremarkable liver. Extremity ultrasound shows a right knee Park cyst. HOSPITAL COURSE: This is a 68-year-old male, who came into the emergency room with complaints of shortness of breath and fever ongoing for the last several days. The patient has a history of factor V Leiden in the past and has stopped taking his anticoagulation for several weeks now. Hematology was consulted and the patient was re-initiated on his anticoagulation therapy. He has an appointment to see his [facility] oncologist as an outpatient. While here, several consultants were involved in this patient's care. The patient continued to have a low-grade temperature while here in the hospital stay and mild elevation of white count prompting ID consultation. Several serologies were performed, found to be negative. Imaging studies performed, found to be negative. It is felt to be likely underlying viral etiology from ID and recommended oral antibiotics upon discharge with outpatient followup in his office in 1 to 2 weeks' time. Cardiology was consulted due to underlying chest pain, found to be atypical in nature and no further workup was needed. Pulmonary was consulted for underlying shortness of breath, found to be no further workup was needed. Full workup Pulmonary has been performed. Imaging studies showed some liver cyst on MRI of the abdomen. The patient was cleared for discharge by all consultants. On discharge, he was afebrile and normotensive. Respiratory rate is good. He is back to normal baseline. Prescription for Xarelto was given to the patient upon discharge to home. The patient was cleared for discharge by all consultants. On the day of discharge, vital signs were stable, labs reviewed and stable. The patient was seen and evaluated and examined thoroughly on the day of discharge. No other complaints. 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 The rest of the consultants described above in 1 to 2 weeks' time. MEDICATIONS: See med reconciliation form. DISPOSITION: Home. CONDITION: Stable. DIET: Heart healthy. DISCHARGE INSTRUCTIONS: In the event of any worsening symptoms, the patient was advised to come back to the ED for further evaluation. TIME SPENT: Discharge summary took greater than 35 minutes. MD FATEMEH Tong/ELISABETH /[id number]
== END 2019-07-26 17:38 | disposition home or self-care (01) | DRG 204 ==
LOC: ER 08:27 → ERHOLD 10:51 → MED/SURG3 13:11 → OBSVTOIN 07-23 07:22
PROVIDERS: ADMIT Internal Medicine; ATTEND Internal Medicine
DX: R07.81 Pleurodynia (principal); D68.51 Activated protein C resistance; J90 Pleural effusion, not elsewhere classified; R07.89 Other chest pain; E78.5 Hyperlipidemia, unspecified; I10 Essential (primary) hypertension; G47.33 Obstructive sleep apnea (adult) (pediatric); Z86.711 Personal history of pulmonary embolism; Z82.49 Family history of ischemic heart disease and other diseases of the circulatory system; I25.10 Atherosclerotic heart disease of native coronary artery without angina pectoris; Z86.718 Personal history of other venous thrombosis and embolism; Z83.3 Family history of diabetes mellitus; Z96.652 Presence of left artificial knee joint; N40.0 Benign prostatic hyperplasia without lower urinary tract symptoms; T45.516A Underdosing of anticoagulants, initial encounter; Z91.128 Patient's intentional underdosing of medication regimen for other reason; D64.9 Anemia, unspecified; Z87.440 Personal history of urinary (tract) infections; Z87.442 Personal history of urinary calculi; E66.9 Obesity, unspecified; Z68.36 Body mass index [BMI] 36.0-36.9, adult; K80.20 Calculus of gallbladder without cholecystitis without obstruction; R50.9 Fever, unspecified; G89.29 Other chronic pain; M17.12 Unilateral primary osteoarthritis, left knee; K76.9 Liver disease, unspecified; B34.9 Viral infection, unspecified; M25.561 Pain in right knee
CPT/HCPCS: 36415; 71045; 71260; 74176; 74183; 76882; 78582; 80048; 80053; 80061; 81001; 82550; 82553; 83615; 83735; 83880; 84145; 84439; 84443; 84484; 85025; 85610; 85651; 85730; 86039; 86140; 86200; 86431; 86611; 86635; 86644; 86645; 86663; 86664; 86665; 86698; 86777; 86778; 87040; 87086; 87390; 87400; 93005; 93306; 93970; 99284; A9540; A9558; G0378; G0433; G0435; J0456; J0696; J1650; J7030; J7050; Q9967

== ENCOUNTER → 2021-06-16 | Outpatient (CLI) | payer MEDICARE, OTHER ==
[~2021-06-16] MED LIST changes: +FLONASE ALLERG9.9 ML; +LEXAPRO10 MG PO; +MICARDIS40 MG PO; +spirinolactone PO
== END ==
LOC: RAD 09:49
PROVIDERS: ATTEND Urology
DX: N20.0 Calculus of kidney (principal)
CPT/HCPCS: 74018